=== PATIENT | male | born 1995 | race African-American/Black ===

== ENCOUNTER 2025-02-04 20:32 | Inpatient (IN) | payer OTHER, SELFPAY ==
--- NOTE | 2025-02-04 | ECG_ITS ---
Test Reason : TACHY Blood Pressure : */* mmHG Vent. Rate : 129 BPM Atrial Rate : 129 BPM P-R Int : 128 ms QRS Dur : 86 ms QT Int : 290 ms P-R-T Axes : 85 84 73 degrees QTcB Int : 424 ms Sinus tachycardia Biatrial enlargement Abnormal ECG No previous ECGs available Referred By: Generic ED Physician Electronically Signed By: MARIA DE JESUS CHAIDEZ
--- NOTE | ~2025-02-04 | CT_ITS ---
CLINICAL HISTORY: abdominal pain, renal failure CT abdomen and pelvis without contrast Comparison: None provided Findings: The lung bases are clear. Unremarkable gallbladder and solid organs. No urolithiasis. No bowel obstruction, pneumoperitoneum, or pneumatosis. Pelvic contents unremarkable. Normal appendix. No acute fracture. IMPRESSION: No acute findings. This document has been electronically signed by: Yoseph Azevedo MD on 02/05/2025 01:45:56
[2025-02-04 20:40] VITALS: BP 121/88; PULSE 155; PULSE 76; RESP 14; TEMP 36.6; O2SAT 100; O2SAT 98; BMI 19.0
[2025-02-04 21:53] LABS: MANUAL DIFF FLAG NO
[2025-02-04 21:55] LABS: Hemoglobin 19.8 g/dl (14.0-18.0); Imm Gran Abs Auto 0.14 X10*3/uL (0.00-0.03); Imm Gran Pct Auto 0.8 % (0.0-0.4); Lymphocytes Absolute Auto 2.1 X10*3/uL (1.2-4.9); Mean Corpuscular HGB Conc 34.4 g/dl (31.0-36.0); Mean Corpuscular Hemoglobin 32.8 pg (27.0-33.0); Mean Corpuscular Volume 95.2 fL (80.0-98.0); NRBC Abs Auto 0.000 X10*3/uL (0.0-0.012); NRBC Pct Auto 0.0 /100WBC (0.0-0.2); Platelet Count 223 X10*3/uL (160-400); Red Blood Count 6.04 X10*6/uL (4.60-5.80); White Blood Count 18.4 X10*3/uL (4.8-10.8)
[2025-02-04 22:08] LABS: Hematocrit 57.5 % (42.0-52.0)
[2025-02-04 22:14] LABS: Alanine Aminotransferase 32 U/L (0-40); Albumin Level 6.6 g/dL (3.5-5.0); Alkaline Phosphatase 88 U/L (39-117); Anion Gap 31 (12-20); Aspartate Amino Transferase 37 U/L (5-37); Blood Urea Nitrogen 46 mg/dL (9-16); Calcium 11.4 mg/dL (8.4-10.2); Carbon Dioxide 20 mmol/L (22-29); Chloride 92 mmol/L (96-108); Creatinine Clr Calc Pharmacy 14.5; Estimated Glomerular Filt Rate 10; Lipase 95 U/L (8-78); Potassium 5.4 mmol/L (3.3-5.1); Sodium 138 mmol/L (135-145); Total Protein 11.4 g/dL (6.5-8.0)
[2025-02-04 22:23] VITALS: BP 155/128; PULSE 128; RESP 20; TEMP 36.3; O2SAT 95
[2025-02-04 22:34] LABS: Resp Syncy Virus RNA Qual PCR NEGATIVE (Negative); SARS COV2 PCR INHOUSE NEGATIVE (Negative)
--- OUTSIDE RECORDS SUMMARY | 2025-02-04 22:43 | XMS_ITS ---
Author Name [facility] Organization Unknown Care Team Organization Name Specialty Phone Email Start Date End Da te [facility] Thierno Ness DO Primary Care 09/08/202202/01 [facility] Edna Husain Primary Care 05/11/2022 02/20/2024
--- OUTSIDE RECORDS SUMMARY | 2025-02-04 22:43 | XMS_ITS | Clinical Summary ---
Author Organization [facility] Address [address] [place] [address] Phone Care Team Providers Care Health Psychologist Name Role Phone Edna Armstrong Primary Care Provider + Allergies Active Allergy Reactions Criticality Noted Date Comments Prochlorperazine Restlessness,Sweating High 02/08/20 23 Droperidol 03/17/2022 Anxiety Other Medium 08/16/2017 Dust and Pollen Medications dicyclomine (BENTYL) 20 mg tablet Take 1 tablet (20 mg total) by mouth every 6 (six) hours as needed. 20 tablet 5 Active ondansetron (ZOFRAN-ODT) 4 MG disintegrating tablet Take 1 tablet (4 mg total) by mouth every 8 (eight) hours as needed. 10 tablet 5 Active Active Problems Problem Noted Date Diagnosed Date Acute kidney injury 2022 Assessment & Plan (2022 12:01 PM EDT): Patient's baseline creatinine of 1, noted to be elevated at 2.6 on admission with a BUN to creatinine ratio of about 15. Suspect this is prerenal DIMAS given significant nausea and vomiting prior to admission that has since resolved. DIMAS is improving slowly with IV fluids down to a creatinine of 2.2 this morning. Did have a mild anion gap, with mild hyperkalemia in the setting of mild hemolysis that has since resolved. - Continue IV fluids at 200/hr - avoid nephrotoxic medications. - Renally adjust medications - If worsening will obtain FeNA, renal US - Consider renal consult if no improvement Leukocytosis 2022 Assessment & Plan (2022 12:02 PM EDT): Has had brisk leukemoid reactions in the past. He is markedly dehydrated as illustrated by his serum protein of 10.0. I do not feel that his leukocytosis is artists' booking representative of an acute infection. If he develops a fever we will obtain cross-sectional imaging of his abdomen and pelvis. Leukocytosis is improving with fluid resuscitation, patient remains afebrile. Anxiety 2022 Assessment & Plan (2022 12:05 PM EDT): Patient reports increased anxiety, states that this is improved with either Benadryl or marijuana. He is requesting treatment while here in the hospital. -Trial of Atarax QID PRN - Encourage patient to follow-up with PCP for psychiatric counseling if interested Intractable nausea and vomiting 08/24/2022 Assessment & Plan (2022 11:57 AM EDT): Discussed the possibility of cannabis hyperemesis syndrome. Advised to stop smoking marijuana and if he is unable to do so he is advised to smoke low THC strains. 11/23: Patient reports resolution of nausea, vomiting, abdominal pain. HD stable, afebrile. He is tolerating full liquid diet. -Zofran BEVERLEY - PRN Compazine - Full liquid diet, advancing as tolerated - Continue Tylenol and oxycodone PRN - Continue Bentyl 20mg QID PRN for cramping - D/C IV morphine - Consider Amitryptyline for CVC prophylaxis with PCP on discharge Assessment & Plan (08/24/2022 5:19 AM EST): May be MJ hyperemesis or pt believes related to irritable bowel. He reports colonoscopy and endoscopy, which are confirmed with normal biopsy (one tubular adenoma) in February of 2022 at [place]. He is agreeable to trial of stopping MJ use and does have apt with mine wedge sawyer upcoming. For now D5LR to stop the ketosis and anticipate will be able to eat in the AM Social History Tobacco Use Types Packs/Day Years Used Date Smoking Tobacco: Never Smokeless Tobacco: Never Tobacco Cessation:Counseling Given: Not Answered Alcohol Use Standard Drinks/Week Comments Yes 0 (1 standard drink = 0.6 oz pur e alcohol) Education Answer Date Recorded Are you interested in more education? Not on gerda e 10/30/2022 Are you concerned about learning? Not on file 10/30/2022 No 10/30/2022 No 10/30/2022 Food Answer Date Recorded Within the past 6 months we worried whether our food would run out before we got money to buy more. Never True 10/22/2024 Within the past 6 months the food we bought just didn't last and we didn't have enough money to get more. Never True Residential Stability Answer Date Recor ded What is your housing situation today? I have blanquita sing 10/22/2024 How many times have you moved in the past 12 tue ths? One time 10/22/2024 Paying for Meds Answer Date Recorded Do you have trouble paying for medicines? No 10/22/2024 Paying Utility Bills Answer Date Record ed Do you have trouble paying your heating or elect ricity bill? No 10/22/2024 Transportation Answer Date Recorded Has the lack of transportati on kept you from medical appointments or from getting medications? No 10/22/2024 Digital Access Answer Date Recorded No 10/22/2024 Yes 10/22/2024 Do you have reliable internet access at home? Ye s 10/22/2024 Do you have a device (e.g., phone, tablet, computer) with a working camera? Yes 10/22/2024 Intimate Partner Violence Answer Date R ecorded Are you denied basic needs s uch as food, clothing, or medical care? No 10/22/2024 In the past 12 months have y ou been in a relationship with a person who hurts, threatens, or tries to control you? No 10/22/2024 Are you denied basic needs s uch as food, clothing, or medical care? No 10/22/2024 In the past 12 months have y ou been in a relationship with a person who hurts, threatens, or tries to control you? No 10/22/2024 Sex and Gender Information Value Date Recorded Sex Assigned at Male 04/15/2021 10:02 AM EDT Legal Sex Male 9:01 AM EDT Gender Identity Male 09/26/2021 3:37 PM EDT Sexual Orientation Straight 01/19/2024 12 :05 PM EDT Last Filed Vital Signs Vital Sign Reading Time Taken Comments Blood Pressure 136/92 10/22/2024 4:06 PM EDT Pulse 98 10/22/2024 4:06 PM EDT Temperature 36.7 C (98 F) 10/22/2024 4:06 PM EDT Respiratory Rate 16 10/22/2024 4:06 PM EDT Oxygen Saturation 98% 10/22/2024 4:06 PM EDT Inhaled Oxygen Concentration - - Weight 68 kg (150 lb) 08/11/2024 4:04 PM EST Height 185.4 cm (6' 1 ) 10/22/2024 12:12 PM EDT Body Mass Index 19.79 08/11/2024 4:04 PM EST Plan of Treatment Health Maintenance Due Date Last Done Comments Adult Td,Tdap Booster 1995 DEPRESSION SCREENING 2007 HEPATITIS C SCREENING 11/22/2013 HIV ONE-TIME SCREENING (18-6 5 YEARS) 11/22/2013 COVID-19 VACCINE (2023-2 5 season) 2024 06/23/2022, 06/18/2021, 10/26/2020 SMOKING STATUS SCREENING (On ce After 26 Yrs) Completed 10/22/2024 HEPATITIS A VACCINES Aged Out No long er eligible based on patient's age to complete this topic HIB VACCINES Aged Out No longer eligi ble based on patient's age to complete this topic MENINGOCOCCAL VACCINES (ACWY) Aged Out No longer eligible based on patient's age to complete this topic MENINGOCOCCAL VACCINES (B) Aged Out N o longer eligible based on patient's age to complete this topic PNEUMOCOCCAL VACCINES (0-49 years) Aged Out No longer eligible b ased on patient's age to complete this topic Medical Devices Not on file Insurance [facility] A[facility] [employer] ALLANCE [employer]CO [employer] ALL[employer] [facility] [employer] [place] [address] [place] [address] [place] [address] [place] [address] [employer] [place] [facility] [employer] ALLANCE [employer]ANCE ACO Advance Directives For more information, please contact: [phone] (9AM - 5PM [facility], Tuesday-Tuesday) Documents on File Type Date Recorded 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 08/26/2022 2:08 PM * Full Code (Latest Code Status on File) Date Activated Date Inactivated Comments 2022 2:52 AM Question Answer Comments Code Status Confirmed With: Patient * Full Code Date Activated Date Inactivated Comments 08/24/2022 5:34 AM 2022 2:52 AM Question Answer Comments Code Status Confirmed With: Patient Care Teams Health Psychologist Relationship Specialty Start Date End Date Edna Armstrong PA [address] [place] [phone] PCP - General 09/26/21 Additional Source Comments The information contained in this document represents components of the legal health record. It is not the complete legal health record.[facility]
--- OUTSIDE RECORDS SUMMARY | 2025-02-04 22:43 | XMS_ITS | Clinical Summary ---
Author Organization [facility] [address] [facility] [facility] [address] Address [address] [place] [address] Phone Care Team Providers Care Supervisor Lump Room Name Role Phone Geovanna Hinds MD Primary Care Provider Allergies Active Allergy Reactions Criticality Noted Date Comments Droperidol Anxiety 03/17/2022 Anxiety Other Medium 08/16/2017 Dust and Pollen Prochlorperazine Anxiety,Sweating High 02/07/2023 Medications dicyclomine (BENTYL) 20 mg tablet Take 1 Tablet by mouth every 6 hours as needed (Abdominal cramping). 4 Active peppermint oiL 90 mg capsule,delayed,ext end.release Take 1 capsule by mouth 1 (one) time each day. Active ondansetron ODT (ZOFRAN-ODT) 4 mg disintegrating tablet Dissolve 1 tablet (4 mg total) on top of the tongue every 8 (eight) hours if needed for nausea or vomiting. 20 tablet 1 5 Active amitriptyline (ELAVIL) 10 mg tablet Take 1 tablet (10 mg total) by mouth at bedtime. 30 each 3 5 10/05/19 26 Active magnesium oxide 400 mg magnesium capsule Take 1 capsule by mouth at bedtime. 30 capsule 3 5 Active Active Problems Problem Noted Date Diagnosed Date Tubular adenoma of colon 04/21/2022 Cannabis abuse 04/27/2019 IBS (irritable bowel syndrome) 03/21/2018 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 LLQ abdominal pain 07/05/2017 Nausea and vomiting 07/05/2017 Encounters Date Type Department Care Team Description 01/08/2025 2:00 PM EDT Office Visit Gastroenterology - [facility] [address] [place] [address] Kori Nash PA Irritable bowel syndrome with both constipation and diarrhea (Primary Dx); Tubular adenoma of colon; Nausea and vomiting, unspecified vomiting type from Last 3 Months Immunizations Name Administration Dates Next Due Influenza Quadravalent, MDCK , 0.5ml, with preservative (Flucelvax) 6mo and older 07/05/2017 Influenza trivalent, MDCK, 0 .5mL, preservative free (Flucelvax) 6mo and older 06/19/2024 Influenza, Unspecified 06/23/2022 Moderna SARS-CoV-2 COVID-19, mRNA, LNP-S, preservative free 06/23/2022 Surgical History Surgery Date Site/Laterality Comments OTHER SURGICAL HISTORY PROCEDURE: DENIES PREVIOUS SURGERY Medical History Medical History Date Comments Constipation 07/05/2017 DX:Constipation LLQ abdominal pain 07/05/2017 DX:LLQ abdomi nal pain IBS (irritable bowel syndrome) 03/21/2018 D X:IBS (irritable bowel syndrome) 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 DX:Nephrocalcin osis Cannabis abuse 04/27/2019 DX:Cannabis abus e Anxiety Family History Medical History Relation Name Comments Hypertension Father Hypertension Mother Relation Name Status Comments Father Mother Social History Tobacco Use Types Packs/Day Years Used Date Smoking Tobacco: Every Day Cigarettes 0.2 8.3 Started: 10/12/2016 Smokeless Tobacco: Former Alcohol Use Standard Drinks/Week Comments Yes 0 (1 standard drink = 0.6 oz pur e alcohol) Interpersonal Safety Answer Date Record ed Physical Abuse 10/10/2024 Verbal Abuse 10/10/2024 Sex and Gender Information Value Date Recorded Sex Assigned at Male 10/10/2024 7:20 AM EDT Legal Sex Male 8:22 PM EST Gender Identity Male 10/10/2024 7:20 AM EDT Sexual Orientation Straight 10/10/2024 7: 20 AM EDT Obstetrics History Last Filed Vital Signs Vital Sign Reading Time Taken Comments Blood Pressure 118/76 01/08/2025 2:10 PM EDT Pulse 102 01/08/2025 2:10 PM EDT Temperature 37.1 C (98.7 F) 10/10/2024 8:02 AM EDT Respiratory Rate 18 10/10/2024 8:46 AM EDT Oxygen Saturation 98% 01/08/2025 2:10 PM EDT Inhaled Oxygen Concentration - - Weight 63.9 kg (140 lb 12.8 oz) 01/08/2025 2:10 PM EDT Height 185.4 cm (6' 1 ) 01/08/2025 2:10 PM EDT Body Mass Index 18.58 01/08/2025 2:10 PM EDT Plan of Treatment Upcoming Encounters Date Type Department Care Team (Late st Contact Info) Description 04/10/2025 8:30 AM EDT Office Visit Gastroenterology - [facility] [address] [facility] [address] [place] [id number] Kori Nash PA [address] [facility] [address] [place] [address] Health Maintenance Due Date Last Done Comments DTaP,Tdap,and Td Vaccines (1 - Tdap) 11/22/2014 Hepatitis A Vaccines (1 of 2 - Risk 2-dose series) 11/22/2014 Hepatitis B Vaccines (1 of 3 - 19+ 3-dose series) 11/22/2014 Pneumococcal Vaccine: Pediatrics (0 to 5 Years) and At-Risk Patients (6 to 49 Years) (1 of 2 - PCV) 11/22/2014 HIV Screening 06/05/2022 Hepatitis C Screening 06/05/2022 Social Influencers of Health Screening 06/05/2022 COVID-19 Vaccine (4 - 2023-2 5 season) 2024 06/23/2022, 06/18/2021, 10/26/2020 Depression Screening 07/04/2024 01/11/2024 Influenza Vaccine (#1) 2025 , 06/23/2022, 07/05/2017 Cholesterol Screening (Lipid Panel) 01/10/2029 01/11/2024, 01/11/2024 Colorectal Cancer Screening: Colonoscopy 10/10/2029 10/10/2024 HIB Vaccines Aged Out No longer eligi ble based on patient's age to complete this topic HPV Vaccines Aged Out No longer eligi ble based on patient's age to complete this topic IPV Vaccines Aged Out No longer eligi ble based on patient's age to complete this topic MMR Vaccines Aged Out No longer eligi ble based on patient's age to complete this topic Meningococcal ACWY Vaccine Aged Out N o longer eligible based on patient's age to complete this topic Meningococcal B Vaccine Aged Out No l onger eligible based on patient's age to complete this topic RSV Immunization Patients Under 20 months Aged Out No longer eligible b ased on patient's age to complete this topic Varicella Vaccines Aged Out No longer eligible based on patient's age to complete this topic Procedures Procedure Name Priority Date/Time Associated Diagnosis Comments COLONOSCOPY Routine 10/10/2024 8:25 AM EDT Irritable bowel syndrome with both constipation and diarrhea Tubular adenoma of colon Hx of colonic polyps HM DEPRESSION SCREENING Routine 01/11/2024 LIPID PANEL Routine 01/11/2024 from Last 3 Months or Most Recently Relevant to Health Maintenance Results * COLONOSCOPY Anesthesia - MAC; [facility] ENDOSCOPY (10/10/2024 8:25 AM EDT) Anatomical Region Laterality Modality Endoscopy 10/10/2024 8:16 AM EDT Impressions 10/10/2024 8:26 AM EDT - One 4 mm polyp in the ascending colon, removed with a cold snare. Resected and retrieved. - Internal hemorrhoids. - The examination was otherwise normal. Recommendation: - Discharge patient to home. - Await pathology results. - Repeat colonoscopy in 5 years for surveillance. Narrative 10/10/2024 8:26 AM EDT [facility] GI Patient Name: Gabriel Sutherland Procedure Date: 10/10/2024 8:16 AM Date of : 1995 Age: 28 Gender: Male Note Status: Finalized Attending MD: Santino Mills MD, Procedure Date No Time: 10/10/2024 Procedure: Colonoscopy Indications: Hematochezia Providers: Santino Mills MD Referring MD: Santino Mills MD Medicines: Monitored Anesthesia Care Complications: No immediate complications. Estimated blood loss: Minimal. Estimated Blood Loss: Estimated blood loss was minimal. Procedure: Pre-Anesthesia Assessment: - Prior to the procedure, a History and Physical was performed, and patient medications and allergies were reviewed. The patient is competent. The risks and benefits of the procedure and the sedation options and risks were discussed with the patient. All questions were answered and informed consent was obtained. Patient identification and proposed procedure were verified by the physician, the nurse, the talent acquisition administrator and the geotechnician in the pre-procedure area in the procedure room. Mental Status Examination: alert and oriented. Airway Examination: normal oropharyngeal airway and neck mobility. Respiratory Examination: clear to auscultation. CV Examination: normal. Prophylactic Antibiotics: The patient does not require prophylactic antibiotics. Prior Anticoagulants: The patient has taken no anticoagulant or antiplatelet agents. ASA Grade Assessment: III - A patient with severe systemic disease. After reviewing the risks and benefits, the patient was deemed in satisfactory condition to undergo the procedure. The anesthesia plan was to use monitored anesthesia care (MAC). Immediately prior to administration of medications, the patient was re-assessed for adequacy to receive sedatives. The heart rate, respiratory rate, oxygen saturations, blood pressure, adequacy of pulmonary ventilation, and response to care were monitored throughout the procedure. The physical status of the patient was re-assessed after the procedure. After I obtained informed consent, the scope was passed under direct vision. Throughout the procedure, the patient's blood pressure, pulse, and oxygen saturations were monitored continuously. The Olympus Colonoscope was introduced through the anus and advanced to the cecum, identified by appendiceal orifice and ileocecal valve. The colonoscopy was performed without difficulty. The patient tolerated the procedure well. The quality of the bowel preparation was good. Findings: The perianal and digital rectal examinations were normal. A 4 mm polyp was found in the ascending colon. The polyp was sessile. The polyp was removed with a cold snare. Resection and retrieval were complete. Estimated blood loss was minimal. Internal hemorrhoids were found during retroflexion. The hemorrhoids were Grade I (internal hemorrhoids that do not prolapse) and Grade II (internal hemorrhoids that prolapse but reduce spontaneously). The exam was otherwise without abnormality. Procedure Code(s): --- Professional --- 39492, Colonoscopy, flexible; with removal of tumor(s), polyp(s), or other lesion(s) by snare technique Diagnosis Code(s): --- Professional --- D12.2, Benign neoplasm of ascending colon CPT copyright 2020 [employer]. All rights reserved. The codes documented in this report are preliminary and upon scenario writer review may be revised to meet current compliance requirements. Santino Mills MD 10/10/2024 8:26:18 AM This report has been signed electronically.Santino Mills MD Number of Addenda: 0 Note Initiated On: 10/10/2024 8:16 AM Scope Withdrawal Time: 0 hours 6 minutes 38 seconds Scope In: 8:16:46 AM Scope Out: 8:25:43 AM Endoscopy Department at [address] [phone] Procedure Note Santino Mills MD - 10/10/2024 [facility] GI Patient Name: Gabriel Sutherland Procedure Date: 10/10/2024 8:16 AM Date of : 1995 Age: 28 Gender: Male Note Status: Finalized Attending MD: Santino Mills MD, Procedure Date No Time: 10/10/2024 Procedure: Colonoscopy Indications: Hematochezia Providers: Santino Mills MD Referring MD: Santino Mills MD Medicines: Monitored Anesthesia Care Complications: No immediate complications. Estimated blood loss: Minimal. Estimated Blood Loss: Estimated blood loss was minimal. Procedure: Pre-Anesthesia Assessment: - Prior to the procedure, a History and Physicalwas performed, and patient medications and allergieswere reviewed. The patient is competent. The risks and benefits of the procedure and the sedation optionsand risks were discussed with the patient. Allquestions were answered and informed consent was obtained. Patient identification and proposed procedure were verified by the physician, the nurse, theanesthetist and the geotechnician in the pre-procedure area in the procedure room. Mental Status Examination: alertand oriented. Airway Examination: normal oropharyngeal airway and neck mobility. Respiratory Examination: clear to auscultation. CV Examination: normal. Prophylactic Antibiotics: The patient does notrequire prophylactic antibiotics. Prior Anticoagulants: The patient has taken no anticoagulant or antiplatelet agents. ASA Grade Assessment: III - A patient with severe systemic disease. After reviewing the risksand benefits, the patient was deemed in satisfactory condition to undergo the procedure. The anesthesia plan was to use monitored anesthesia care (MAC). Immediately prior to administration of medications, the patient was re-assessed for adequacy to receive sedatives. The heart rate, respiratory rate, oxygen saturations, blood pressure, adequacy of pulmonary ventilation, and response to care were monitored throughout the procedure. The physical status ofthe patient was re-assessed after the procedure. After I obtained informed consent, the scope was passed under direct vision. Throughout theprocedure, the patient's blood pressure, pulse, and oxygen saturations were monitored continuously. TheOlympus Colonoscope was introduced through the anus and advanced to the cecum, identified by appendiceal orifice and ileocecal valve. The colonoscopy was performed without difficulty. The patient tolerated the procedure well. The quality of the bowel preparation was good. Findings: The perianal and digital rectal examinations were normal. A 4 mm polyp was found in the ascending colon. The polyp was sessile. The polyp was removed with acold snare. Resection and retrieval were complete. Estimated blood loss was minimal. Internal hemorrhoids were found duringretroflexion. The hemorrhoids were Grade I (internal hemorrhoids that do not prolapse) and Grade II (internal hemorrhoids that prolapse but reducespontaneously). The exam was otherwise without abnormality. Procedure Code(s): --- Professional --- 23210, Colonoscopy, flexible; with removal of tumor(s), polyp(s), or other lesion(s) by snare technique Diagnosis Code(s): --- Professional --- D12.2, Benign neoplasm of ascending colon CPT copyright 2020 [employer]. All rights reserved. The codes documented in this report are preliminary and upon scenario writer reviewmay be revised to meet current compliance requirements. Santino Mills MD 10/10/2024 8:26:18 AM This report has been signed electronically.Santino Mills MD Number of Addenda: 0 Note Initiated On: 10/10/2024 8:16 AM Scope Withdrawal Time: 0 hours 6 minutes 38 seconds Scope In: 8:16:46 AM Scope Out: 8:25:43 AM Endoscopy Department at [facility] - [address] [place] [phone] IMPRESSION: - One 4 mm polyp in the ascending colon, removed with a cold snare. Resected and retrieved. - Internal hemorrhoids. - The examination was otherwise normal. Recommendation: - Discharge patient to home. - Await pathology results. - Repeat colonoscopy in 5 years for surveillance. Santino Mills MD GI~PROCEDURE ORDERABLES Fin al Result * Depression Screening (01/11/2024) Depression Screening abstracted Historical Provider HEALTH MAINTENANCE Final Result * Lipid panel (01/11/2024) LDL/HDL Ratio 2 0 - 4 Triglycerides 42 0 - 150 mg/dL Cholesterol 133 0 - 200 mg/dL HDL 70 >=40 mg/dL LDL Cholesterol 55 0 - 100 mg/dL Blood Venous blood specimen / Unknown Historical Provider LAB BLOOD ORDERABLES Tess l Result from Last 3 Months or Most Recently Relevant to Health Maintenance Insurance [facility] [place] [address] Care Teams Supervisor Lump Room Relationship Specialty Start Date End Date Geovanna Hinds MD [address] [place] [id number] PCP - General Internal Medicine 11/18/21
--- OUTSIDE RECORDS SUMMARY | 2025-02-04 22:43 | XMS_ITS | Referral Summary ---
Author Organization [facility] Address [address] [place] [id number] Care Team Providers Care Block Layer Name Role Phone Patient, Has No Pcp Or Ref Primary Care Provider Unavailable Allergies No known active allergies Medications dicyclomine (BENTYL) 20 mg tablet Take 1 tablet (20 mg total) by mouth 2 times a day. 20 tablet 10/21/2022 Active Social History Tobacco Use Types Packs/Day Years Used Date Smoking Tobacco: Never Smokeless Tobacco: Never Tobacco Cessation:Counseling Given: Not Answered Alcohol Use Standard Drinks/Week Comments Never 0 (1 standard drink = 0.6 oz pur e alcohol) Sex and Gender Information Value Date Recorded Sex Assigned at Not on file Legal Sex Male 12:16 PM EDT Gender Identity Not on file Sexual Orientation Not on file Last Filed Vital Signs Vital Sign Reading Time Taken Comments Blood Pressure 161/77 10/21/2022 5:40 PM EDT Pulse 81 10/21/2022 5:40 PM EDT Temperature 36.7 C (98 F) 10/21/2022 12:22 PM EDT Respiratory Rate 19 10/21/2022 5:40 PM EDT Oxygen Saturation 99% 10/21/2022 5:40 PM EDT Inhaled Oxygen Concentration - - Weight 68 kg (150 lb) 10/21/2022 12:22 PM EDT Height - - Body Mass Index - - Plan of Treatment Not on file Insurance [employer] Care Teams Block Layer Relationship Specialty Start Date End Date Patient, Has No Pcp Or Ref DO NOT EDIT THIS RECORD VIA PROVIDER ON THE FLY 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
[2025-02-04 22:59] VITALS: BP 141/97; PULSE 109; RESP 17; O2SAT 95
[2025-02-04 23:03] VITALS: RESP 16
[2025-02-04 23:40] LABS: Magnesium 2.5 mg/dL (1.6-2.6)
[2025-02-04 23:51] VITALS: BP 133/93; PULSE 99; RESP 16; O2SAT 98
[2025-02-05] VITALS (11 sets, daily range): BP systolic 129–153; BP diastolic 80–104; PULSE 80–111; RESP 11–18; TEMP 36.6–37.2; O2SAT 94–99; BMI 19.0; BMI 18.1
[2025-02-05 01:23] LABS: Reflex Lactate? Lactic Acid Added
[2025-02-05 01:25] LABS: Appearance Urine Cloudy; Glucose Urine UA Negative (Negative); PH 5.5 (5.0-9.0); Specific Gravity - Urine 1.020 (1.005-1.025); UMIC TRIGGER UACC YES
[2025-02-05 01:51] LABS: ~Lactic Acid-LAB USE ONLY 1.7 mmol/L (0.5-2.0)
--- NOTE | 2025-02-05 03:12 | ED.ABDPAIN ---
HPI - Abdominal Pain General Chief Complaint: Abdominal Pain Stated Complaint: ibs flare up Time Seen by Provider: 02/04/25 22:33 Source: patient and family Mode of arrival: ambulatory Limitations: no limitations History of Present Illness ED Provider: Dr. Dede Verdugo HPI narrative: 29-year-old male with a history of IBS presenting with generalized abdominal pain radiating to his back, severe nausea and vomiting ongoing for the last 48 hours or so. Patient admits to symptoms started at work on Tuesday night and he had to leave early. Has a history of this and has been hospitalized for it in the past. Describes leg cramping and muscle spasms as well. Has been taking his Zofran and dicyclomine without relief. Also uses amitriptyline for his IBS but admits that has not helped much and he really has not been able to hold it down. Denies associated fever, bowel changes. No diarrhea. No hematochezia or melena. Last bowel movement was 2 days ago. Denies hematemesis. No urinary complaints or testicular pain. Had been feeling well prior to this. Last hospitalization was several months ago. He gets most of his care at [facility]. Related Data Allergies Allergy/AdvReac Type Severity Reaction Status Date / Time droperidol Allergy Anxiety Verified 02/04/25 21:20 Review of Systems Review of Systems as per HPI, full review of systems performed and negative but for the above mentioned pertinent positives and negatives. [facility] Past Medical History Attestation statement: The following information was validated with the patient. [facility] Narrative: IBS, denies alcohol, tobacco or illicit substance use Social History Social History Smoked in Last 30 Days: Yes Use of substances other than those prescribed or required for medical reasons: Yes Substance Use Type: Marijuana Advance Directives: No Advance Directives Information Provided: No Do you have a plan to hurt others: No Plan Physical Exam ED Exam Exam: GENERAL: Ill-Appearing, appears uncomfortable. SKIN: Normal skin color for ethnicity, warm, dry, no rashes noted. HEENT: Normocephalic, atraumatic, no stridor, dry mucous membranes, dentition intact, EOMI, PERRLA. NECK: Soft, supple, full ROM, midline structures nontender, no step-offs, no deformities, no lymphadenopathy. CHEST: Heart regular tachycardia, no murmurs, symmetric chest rise and fall. PULMONARY: Clear to auscultation bilaterally, diminished at the bases, no labored breathing, no wheezes/rhales/rhonchi. ABDOMINAL: Soft, nondistended, diffusely tender to palpation with voluntary guarding, positive bowel sounds in all quadrants. : Deferred. MUSCULOSKELETAL: Normal tone, full range of motion, no deformities, no peripheral edema. NEURO: Alert and oriented x3, CN II through XII intact, equal strength and sensation bilateral upper and lower extremities, no focal neurologic deficits. PSYCHIATRIC: Flat affect, fluid speech, good eye contact and appropriate demeanor. Vital Signs: Vital Signs - 24 hr 02/04/25 20:40 02/04/25 22:23 02/04/25 22:59 Temperature 97.9 F 97.4 F Pulse Rate 155 H 128 H 109 H Respiratory Rate 14 20 17 Blood Pressure 121/88 155/128 H 141/97 H Pulse Oximetry 98 95 95 Oxygen Delivery Method Room Air Room Air Room Air 02/04/25 23:03 02/04/25 23:51 02/05/25 00:25 Temperature Pulse Rate 99 102 H Respiratory Rate 16 16 12 Blood Pressure 133/93 H 133/88 Pulse Oximetry 98 97 Oxygen Delivery Method Room Air Room Air 02/05/25 00:31 02/05/25 00:45 02/05/25 01:03 Temperature Pulse Rate 101 H 99 104 H Respiratory Rate 12 Blood Pressure 138/104 H 136/103 H 135/95 H Pulse Oximetry 98 Oxygen Delivery Method Room Air BMI result Body Mass Index 19.0 Medical Decision Making Medical Decision Making MDM Narrative: This patient presents today with a chief complaint of abdominal pain. Differential diagnosis for this patient is broad. It includes appendicitis, cholecystitis, bowel obstruction, peptic ulcer disease, pyelonephritis, vascular pathology, among many others. A broad-based workup based on history and physical examination was obtained. 22:36 PM 02/04/2025 (Dr. Dede Verdugo, D.O.) patient flagging for SIRS with elevated white blood cell count, tachycardia. Added on lactic acid and blood cultures, 30 cc/kg fluid bolus initiated. Patient is in renal failure with creatinine of 6.74. I have no previous for comparison. Patient denies medical history aside from IBS but reports that he has had ?issues with his kidneys before and has required IV fluid resuscitation?. Potassium is elevated as well with some peaked T-waves on his EKG. We will give insulin and glucose. Avoiding calcium gluconate given his calcium level of 11.4. With aggressive fluid resuscitation, his potassium will drop any way. He is not significantly acidotic, carbon dioxide level is 20. Anion gap is 31 and I suspect this is due to uremia in the setting of acute renal failure. Suspect elevated white blood cell count in the setting of severe dehydration. His red blood cells are also elevated. 3:27 AM 02/05/2025 (Dr. Dede Verdugo, D.O.) patient's lactic acid level has dropped down to 1.7. Heart rate is improving as well. He remains afebrile, resting comfortably after treatment for nausea and vomiting. CT abdomen and pelvis shows no acute process. He has some red blood cells in his urine but no evidence of infection. I believe that his elevated lactic acid level, heart rate and kidney dysfunction are secondary to profound dehydration in the setting of nausea and vomiting over the last several days. He has been unable to keep anything down. Slight elevation in his CPK, consistent with mild rhabdomyolysis. Given his level of renal impairment, plan for admission to hospitalist for further care and evaluation. Differential Diagnosis Differential Diagnoses: The differential diagnosis associated with the presentation includes (As above) Admission/Observation Consideration of admission/observation: Escalation of care including admission/observation considered Consult Healthcare Provider Management of the patient was discussed with: Hospitalist Lab Data MDM Lab Attestation statement: I reviewed the patient's lab results. 02/04/25 21:48 02/04/25 21:48 Labs: Lab Results 02/04/25 02/04/25 02/05/25 Range/Units 21:48 23:16 01:16 WBC 18.4 H (4.8-10.8) X10*3/uL RBC 6.04 H (4.60-5.80) X10*6/uL Hgb 19.8 H (14.0-18.0) g/dl Hct 57.5 H (42.0-52.0) % MCV 95.2 (80.0-98.0) fL MCH 32.8 (27.0-33.0) pg MCHC 34.4 (31.0-36.0) g/dl RDW 12.5 (11.0-16.0) % Plt Count 223 (160-400) X10*3/uL MPV 11.2 (9.4-12.4) fL Immature Gran % (Auto) 0.8 H (0.0-0.4) % Neut % (Auto) 81.0 H (45-73) % Lymph % (Auto) 11.7 L (20-40) % [place] % (Auto) 6.3 (2-11) % Eos % (Auto) 0.0 (0-4) % Baso % (Auto) 0.2 (0-2) % Lymph # (Auto) 2.1 (1.2-4.9) X10*3/uL [place] # (Auto) 1.2 (0.1-1.2) X10*3/uL Eos # (Auto) 0.0 (0.0-0.4) X10*3/uL Baso # (Auto) 0.0 (0.0-0.2) X10*3/uL Abs Immat Gran (auto) 0.14 H (0.00-0.03) X10*3/uL Absolute Neuts (auto) 14.9 H (2.0-8.3) x10*3/uL Absolute Nucleated RBC 0.000 (0.0-0.012) X10*3/uL Nucleated RBC % (auto) 0.0 (0.0-0.2) /100WBC Sodium 138 (135-145) mmol/L Potassium 5.4 H (3.3-5.1) mmol/L Chloride 92 L (96-108) mmol/L Carbon Dioxide 20 L (22-29) mmol/L Anion Gap 31 H (12-20) BUN 46 H (9-16) mg/dL Creatinine 6.74 H* (0.5-1.4) mg/dL Estim Creat Clear Calc 14.5 Estimated GFR 10 Random Glucose 171 H (60-115) mg/dL Lactic Acid 4.2 H* (0.5-2.0) mmol/L Lactic Acid F/U @ 2Hr (0.5-2.0) mmol/L Calcium 11.4 H (8.4-10.2) mg/dL Magnesium 2.5 (1.6-2.6) mg/dL Total Bilirubin 0.8 (0.0-1.0) mg/dL AST 37 (5-37) U/L ALT 32 (0-40) U/L Alkaline Phosphatase 88 (39-117) U/L Total Creatine Kinase 718 H (38-174) U/L Total Protein 11.4 H (6.5-8.0) g/dL Albumin 6.6 H (3.5-5.0) g/dL Lipase 95 H (8-78) U/L Beta-Hydroxybutyrate 0.16 (0.02-0.27) mmol/L Urine Color Dark Yellow Urine Appearance Cloudy Urine pH 5.5 (5.0-9.0) Ur Specific [place] 1.020 (1.005-1.025) Urine Protein 300 (3+) H (Neg-Trace) mg/dL Urine Glucose (UA) Negative (Negative) mg/dL Urine Ketones Trace (Negative) mg/dL Urine Blood Large (3+) H (Negative) Urine Nitrite Negative (Negative) Ur Leukocyte Esterase Trace H (Negative) Urine RBC 3-5 H (0-2) /HPF Urine WBC 0-5 (0-5) /HPF Ur Squamous Epith Cells 11-20 (0-2) /HPF Urine Bacteria 1+ (None Seen) Hyaline Casts 6-10 (0-2) /LPF Granular Casts Present Influenza Type A (PCR) NEGATIVE (Negative) Influenza Type B (PCR) NEGATIVE (Negative) RSV RNA Qual (PCR) NEGATIVE (Negative) SARS-CoV-2 RNA (RT-PCR) NEGATIVE (Negative) 02/05/25 Range/Units 01:31 WBC (4.8-10.8) X10*3/uL RBC (4.60-5.80) X10*6/uL Hgb (14.0-18.0) g/dl Hct (42.0-52.0) % MCV (80.0-98.0) fL MCH (27.0-33.0) pg MCHC (31.0-36.0) g/dl RDW (11.0-16.0) % Plt Count (160-400) X10*3/uL MPV (9.4-12.4) fL Immature Gran % (Auto) (0.0-0.4) % Neut % (Auto) (45-73) % Lymph % (Auto) (20-40) % [place] % (Auto) (2-11) % Eos % (Auto) (0-4) % Baso % (Auto) (0-2) % Lymph # (Auto) (1.2-4.9) X10*3/uL [place] # (Auto) (0.1-1.2) X10*3/uL Eos # (Auto) (0.0-0.4) X10*3/uL Baso # (Auto) (0.0-0.2) X10*3/uL Abs Immat Gran (auto) (0.00-0.03) X10*3/uL Absolute Neuts (auto) (2.0-8.3) x10*3/uL Absolute Nucleated RBC (0.0-0.012) X10*3/uL Nucleated RBC % (auto) (0.0-0.2) /100WBC Sodium (135-145) mmol/L Potassium (3.3-5.1) mmol/L Chloride (96-108) mmol/L Carbon Dioxide (22-29) mmol/L Anion Gap (12-20) BUN (9-16) mg/dL Creatinine (0.5-1.4) mg/dL Estim Creat Clear Calc Estimated GFR Random Glucose (60-115) mg/dL Lactic Acid (0.5-2.0) mmol/L Lactic Acid F/U @ 2Hr 1.7 (0.5-2.0) mmol/L Calcium (8.4-10.2) mg/dL Magnesium (1.6-2.6) mg/dL Total Bilirubin (0.0-1.0) mg/dL AST (5-37) U/L ALT (0-40) U/L Alkaline Phosphatase (39-117) U/L Total Creatine Kinase (38-174) U/L Total Protein (6.5-8.0) g/dL Albumin (3.5-5.0) g/dL Lipase (8-78) U/L Beta-Hydroxybutyrate (0.02-0.27) mmol/L Urine Color Urine Appearance Urine pH (5.0-9.0) Ur Specific [place] (1.005-1.025) Urine Protein (Neg-Trace) mg/dL Urine Glucose (UA) (Negative) mg/dL Urine Ketones (Negative) mg/dL Urine Blood (Negative) Urine Nitrite (Negative) Ur Leukocyte Esterase (Negative) Urine RBC (0-2) /HPF Urine WBC (0-5) /HPF Ur Squamous Epith Cells (0-2) /HPF Urine Bacteria (None Seen) Hyaline Casts (0-2) /LPF Granular Casts Influenza Type A (PCR) (Negative) Influenza Type B (PCR) (Negative) RSV RNA Qual (PCR) (Negative) SARS-CoV-2 RNA (RT-PCR) (Negative) Radiology Impression Discussion of test interpretation with radiology: I have reviewed the radiologist's reading. Radiologist Impression: CT abdomen and pelvis without contrast Comparison: None provided Findings: The lung bases are clear. Unremarkable gallbladder and solid organs. No urolithiasis. No bowel obstruction, pneumoperitoneum, or pneumatosis. Pelvic contents unremarkable. Normal appendix. No acute fracture. IMPRESSION: No acute findings. This document has been electronically signed by: Yoseph Azevedo MD on 02/05/2025 01:45:56 Chronic Conditions Patient?s care impacted by: Other (IBS) Medications Administered Discontinued Medications Generic Name Dose Route Start Last Admin Trade Name Freq PRN Reason Stop Dose Admin Dextrose 25 gm 02/04/25 22:52 02/04/25 23:03 Dextrose 50 % 25 Gm/50 Ml Syringe IVPUSH 02/04/25 22:53 25 gm ONCE ONE Administration Hydromorphone HCl 1 mg 02/04/25 22:52 02/04/25 23:03 Hydromorphone Hcl 1 Mg/Ml Syringe IVPUSH 02/04/25 22:53 1 mg ONCE ONE Administration Protocol Lactated Ringer's 1,905.09 mls @ 1,905.09 mls/hr 02/04/25 22:34 02/05/25 00:25 Lr 30 ml/kg infuse over 1 hr (1905.09 ml) 02/04/25 23:33 Infused IV Infusion .Q1H ONE Piperacillin Sod/Tazobactam 100 mls @ 200 mls/hr 02/05/25 00:02 02/05/25 01:03 Sod 4.5 gm/ Sodium Chloride IV 02/05/25 00:31 Infused ONCE ONE Infusion Insulin Human Regular 10 unit 02/04/25 22:42 02/04/25 23:03 Insulin Regular, Human 100 Unit/Ml 10 Ml Vial IVPUSH 02/04/25 22:43 10 unit ONCE ONE Administration Ondansetron HCl 4 mg 02/04/25 22:52 02/04/25 23:04 Ondansetron Hcl 4 Mg/2 Ml Vial IVPUSH 02/04/25 22:53 4 mg ONCE ONE Administration Critical Care Time Critical Care Time Total Critical Care Time: 45 Attestation: CRITICAL CARE TIME: 45 minutes of critical care time was spent in direct patient care at the bedside or in the immediate area with this patient. Critical care was necessary to treat or prevent imminent or life-threatening deterioration of the following conditions renal failure, rhabdomyolysis, lactic acidosis, hyperkalemia and hypercalcemia due to nausea and vomiting, severe dehydration. This patient is high risk for decompensation and/or . This time was spent assessing and managing the patient, interpreting labs and imaging, coordinating care with other medical providers, gathering history from either the patient, their representatives, EMS or chart review, and discussing management with hospitalist. Discharge Plan Discharge Clinical Impression: Acute renal failure, Acute abdominal pain, Intractable nausea and vomiting, Acute dehydration, Hyperkalemia, Hypercalcemia, Rhabdomyolysis Patient Disposition: Admitted As Inpatient Print Language: [place]
--- NOTE | 2025-02-05 03:52 | PM.IMHP ---
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 Patient does report history of IBS but also states that his alcohol use has increased due to daily stressors of life including bills and family responsibilities. Patient denies history of withdrawal from alcohol or seizures related to withdrawal. Patient also smoking excessive amounts of marijuana and does recognize the cycle of hot showers to relieve symptoms associated with leg cramping and nausea and vomiting. Patient was started IV fluids in the emergency department noting evidence of DIMAS with a GFR of 10 and a creatinine clearance of 14.5.. Patient is producing adequate amounts of urine, UA negative for UTI but with noted proteinuria. Patient does have mild hyperkalemia with hypercalcemia. Patient did receive dextrose and regular insulin x1 in the emergency department. Repeat labs are currently pending. Patient also has a CK level of 718 indicating mild rhabdomyolysis. Patient was reporting some cramping in the lower legs prior to being seen in the ED. Patient's lactic acid initially 4.2 and is now 1.7 after IV fluids. Lipase is mildly elevated at 95. BP has been persistently elevated. Pt denies hx of MEAGAN or being on medication for HTN in the past. Patient does have a leukocytosis but no obvious evidence of infection. Patient did receive 1 dose of Zosyn emergency department. Patient currently symptom-free and is not experiencing any chest pain, shortness of breath, nausea or vomiting. Patient is tolerating ice chips. Patient denies any abdominal pain. CT of the abdomen and pelvis is negative for any acute findings.Viral studies negative. Pt is not hypoxic. Patient states he has been dealing with increased depression anxiety but is not currently suicidal. Patient does have history of inpatient admission for suicidal attempt back in 2019. Patient states he did not have the supportive family and was living away from family at the time. Patient is interested in speaking with Psychiatry and addictions noting his increased use of alcohol recently and chronic marijuana use for coping. At this time patient does not require one-to-one or section 12. Review of Systems Review of Systems: Patient denies any current nausea or vomiting or abdominal pain. Patient does suffer from intermittent dark constipation with diarrhea secondary to his IBS. Patient does offer that he takes a hot shower was often during the symptoms of nausea vomiting and will use marijuana to relieve these symptoms as well. Patient currently denies any suicidal ideations or homicidal ideations. Yes all other systems are reviewed and are negative [facility] Medical History (Updated 02/05/25 @ 04:45 by BAKARI Vital) Depression with anxiety Tobacco dependence Alcohol use disorder Marijuana dependence IBS (irritable bowel syndrome) Cognitive capacity: Alert and orientated x3 Functional capacity: independent ambulation Pertinent family history: Mother is in her 60s with history of sciatica Social History (Updated 02/05/25 @ 04:45 by BAKARI Vital) Alcohol intake: current Alcohol intake frequency: holidays/special occasions only Comment: 3-4 nips of alcohol per day most days of the week Smoked in Last 30 Days: Yes Use of substances other than those prescribed or required for medical reasons: Yes Substance Use Type: Marijuana Advance Directives: No Advance Directives Information Provided: No Do you have a plan to hurt others: No Plan Ebola Risk: Travel/Contact With Anyone From Affected Area/s: No Has Patient Experienced Ebola Symptoms: No Meds Allergies Allergy/AdvReac Type Severity Reaction Status Date / Time droperidol Allergy Anxiety Verified 02/04/25 21:20 Physical Exam Vital Signs and Narrative: Vital Signs: Last Vital Signs Temp 97.9 F 02/05/25 03:45 Pulse 97 02/05/25 03:45 Resp 17 02/05/25 03:45 BP 134/92 H 02/05/25 03:45 Pulse Ox 95 02/05/25 03:45 O2 Del Method Room Air 02/05/25 03:45 BMI result Body Mass Index 19.0 Alert and orientated X3, able to give good history. Neuro: CN II-X11 intact, no deficits, visual acuity intact EYES: PERRLA, EOM intact, sclera nonicteric, conjunctiva pink ENT: hearing intact, no issues with swallowing, uvula midline, lips moist, nares patent no epistaxis Cardiac: S1 S2 RRR, no murmur, no JVD, no edema in Lower ext Pulmonary: lungs clear to auscultation B Abdominal: BS active in all 4 quadrants, no guarding, tenderness, rebounding MSK: strength 5/5 upper and lower extremities : no CVA tenderness no bladder distension pt voiding using urinal Extremities: no edema in lower extremities, PT and DP pulses palpable +2 Psych: mood mildly depressed, no SI or HI, , judgement and insight good Skin: intact, piercing through nose tattoos B Arms Results Labs 02/04/25 21:48 02/04/25 21:48 Labs: Laboratory Results - last 24 hr 02/04/25 02/04/25 02/05/25 21:48 23:16 01:16 MCV 95.2 MCH 32.8 MCHC 34.4 RDW 12.5 Plt Count 223 MPV 11.2 Immature Gran % (Auto) 0.8 H Neut % (Auto) 81.0 H Lymph % (Auto) 11.7 L [place] % (Auto) 6.3 Eos % (Auto) 0.0 Baso % (Auto) 0.2 Lymph # (Auto) 2.1 [place] # (Auto) 1.2 Eos # (Auto) 0.0 Baso # (Auto) 0.0 Abs Immat Gran (auto) 0.14 H Absolute Neuts (auto) 14.9 H Absolute Nucleated RBC 0.000 Nucleated RBC % (auto) 0.0 Anion Gap 31 H Estim Creat Clear Calc 14.5 Estimated GFR 10 Random Glucose 171 H Lactic Acid 4.2 H* Lactic Acid F/U @ 2Hr Calcium 11.4 H Magnesium 2.5 Total Bilirubin 0.8 AST 37 ALT 32 Alkaline Phosphatase 88 Total Creatine Kinase 718 H Total Protein 11.4 H Albumin 6.6 H Lipase 95 H Beta-Hydroxybutyrate 0.16 Urine Color Dark Yellow Urine Appearance Cloudy Urine pH 5.5 Ur Specific [place] 1.020 Urine Protein 300 (3+) H Urine Glucose (UA) Negative Urine Ketones Trace Urine Blood Large (3+) H Urine Nitrite Negative Ur Leukocyte Esterase Trace H Urine RBC 3-5 H Urine WBC 0-5 Ur Squamous Epith Cells 11-20 Urine Bacteria 1+ Hyaline Casts 6-10 Granular Casts Present Influenza Type A (PCR) NEGATIVE Influenza Type B (PCR) NEGATIVE RSV RNA Qual (PCR) NEGATIVE SARS-CoV-2 RNA (RT-PCR) NEGATIVE 02/05/25 01:31 MCV MCH MCHC RDW Plt Count MPV Immature Gran % (Auto) Neut % (Auto) Lymph % (Auto) [place] % (Auto) Eos % (Auto) Baso % (Auto) Lymph # (Auto) [place] # (Auto) Eos # (Auto) Baso # (Auto) Abs Immat Gran (auto) Absolute Neuts (auto) Absolute Nucleated RBC Nucleated RBC % (auto) Anion Gap Estim Creat Clear Calc Estimated GFR Random Glucose Lactic Acid Lactic Acid F/U @ 2Hr 1.7 Calcium Magnesium Total Bilirubin AST ALT Alkaline Phosphatase Total Creatine Kinase Total Protein Albumin Lipase Beta-Hydroxybutyrate Urine Color Urine Appearance Urine pH Ur Specific [place] Urine Protein Urine Glucose (UA) Urine Ketones Urine Blood Urine Nitrite Ur Leukocyte Esterase Urine RBC Urine WBC Ur Squamous Epith Cells Urine Bacteria Hyaline Casts Granular Casts Influenza Type A (PCR) Influenza Type B (PCR) RSV RNA Qual (PCR) SARS-CoV-2 RNA (RT-PCR) ECG Attestation: I personally reviewed and interpreted this ECG as follows: (Sinus tachycardia Biatrial enlargement) Prior ECG tracings: available for review Imaging Radiologist's Impressions: CT ABD PELVIS Negative for acute findings Assessment and Plan (1) DIMAS (acute kidney injury): Status: Acute Plan Patient is a 29-year-old black male with history of IBS- C/D and follows with [facility], HX of DIMAS associated with cyclical syndrome and marijuana use, chronic marijuana use 3-4 bowls per day with 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 Assessment in the ED noted DIMAS secondary to cyclical nausea, vomiting with dehydration and evidence of mild rhabdomyolysis. Patient being admitted for further evaluation. DIMAS secdonary to persistent N/V, dehydration IV fluids continue, LR at 100 mL/hour NPO except for ice chips and medications, currently tolerated as patient is asymptomatic - advance diet as tolerated Zofran PRN Nephrology consulted Avoid hypotension and nephrotoxic medications BMP daily Strict I's and O's CT ABD PELVIS neg for acute findings Hyperkalemia Patient received D50 with regular insulin Repeat K pending Telemetry Hypercalcemia IV fluids administered Repeat calcium pending Rhabdomyolosis mild Total CK 718 initially IV fluids continue Leg cramping and symptoms are resolving Repeat level in the a.m. HTN Hydralazine 10 mg IV Q6H prn for systolic > 160 Avoid hypotension noting DIMAS Pt deneis hx of Renal Artery Stenosis Chronic marijuana use Patient has had hyperemesis with cyclical nausea/vomiting related to marijuana use in the past Patient currently using 3-4 bowls per day with increasing depression and anxiety Capsaician cream ordered, pt agreeable to tx Addictions counseled Tobacco dependence Patient smokes 4-5 times per day Requesting nicotine patch. Ordering 14 mg daily Patient counseled on the benefits of smoking cessation Alcohol use disorder Patient has been increasing his alcohol use sometimes at home alone - 3-4 nips of vodka per day on most days - last drink Tuesday02/01/25 No history of withdrawal Thiamine and folic acid started Addictions consulted CIWA ordered, patient currently scoring 0 with no indication for phenobarbital at this time IBS- C/D Patient will continue to follow with his outpatient GI specialist MiraLax PRN Patient currently denies any issues with diarrhea or constipation Depression anxiety Patient agreeable psychiatric consultation as his depression anxiety is increasing with noted increased marijuana and alcohol use Vitamin-D level ordered Patient denies any SI or HI - no indication for section 12 are one-to-one at this time Patient is not currently on SSRIs but takes amitriptyline Borderline underweight Nutritional consult ordered Patient admits that appetite has varied lately most likely due to stress and anxiety Patient does have access to food with financial resources available. Plan of care reviewed with Dr. Rosales. Agreed with holding ABX at this time as there is no obvious source of infection. Lactic acidosis and leukocytosis likely reactive to cyclical N/V. DVT prophylaxis: Heparin subQ Med rec pending Full Code status Quality Stroke Does the patient have a stroke diagnosis?: No Reason for No Anti-thrombotic by Day Two: N/A - Med Ordered VTE Prior VTE?: No VTE Risk Level:: Medical - moderate - high VTE Device Contraindication: N/A - Device Ordered VTE Drug Contraindication: N/A - Med Ordered
[2025-02-05] MEDS: Lactated Ringers 1,000 ML 100 ML IVCONT ×3 (04:27→23:40)
[2025-02-05] MEDS: Nicotine 14 MG PATCH.TD24 TRANSDERMA ×2 (05:19→09:05)
[2025-02-05 05:29] LABS: MANUAL DIFF FLAG NO
[2025-02-05 05:31] LABS: Hematocrit 49.1 % (42.0-52.0); Hemoglobin 17.4 g/dl (14.0-18.0); Imm Gran Abs Auto 0.08 X10*3/uL (0.00-0.03); Imm Gran Pct Auto 0.4 % (0.0-0.4); Lymphocytes Absolute Auto 1.8 X10*3/uL (1.2-4.9); Mean Corpuscular HGB Conc 35.4 g/dl (31.0-36.0); Mean Corpuscular Hemoglobin 33.2 pg (27.0-33.0); Mean Corpuscular Volume 93.7 fL (80.0-98.0); NRBC Abs Auto 0.000 X10*3/uL (0.0-0.012); NRBC Pct Auto 0.0 /100WBC (0.0-0.2); Platelet Count 177 X10*3/uL (160-400); Red Blood Count 5.24 X10*6/uL (4.60-5.80); White Blood Count 18.1 X10*3/uL (4.8-10.8)
[2025-02-05 05:40] LABS: Cannabinoid Screen Urine POSITIVE (Not Detect)
[2025-02-05 05:59] LABS: Anion Gap 24 (12-20); Blood Urea Nitrogen 50 mg/dL (9-16); Calcium 9.9 mg/dL (8.4-10.2); Carbon Dioxide 23 mmol/L (22-29); Chloride 98 mmol/L (96-108); Creatinine Clr Calc Pharmacy 18.9; Estimated Glomerular Filt Rate 13; Lipase 48 U/L (8-78); Potassium 4.6 mmol/L (3.3-5.1); Sodium 140 mmol/L (135-145)
--- NOTE | 2025-02-05 07:41 | PC.NURSE ---
pt requesting diet order, notified and diet order placed. Pt denies n/v or abdominal pain at this time. A+Ox4, calm, cooperative. Pt provided with gingerale and jello with some saltines.
--- NOTE | 2025-02-05 08:10 | PHA.MEDREC ---
Addendum entered by Alexandria Velázquez RPh 02/05/25 08:18: Reviewed by [facility] Original Note: Pharmacy Consult ? Medication Reconciliation Pharmacy has completed the medication reconciliation. Pt confirmed his medications. Per pt he still has and takes Dicyclomine as needed for abdominal pain and Ondansetron as needed for nausea and vomiting.
[2025-02-05 08:37] LABS: Parathyroid Hormone Intact 128.0 pg/mL (8.7-77.1)
--- NOTE | 2025-02-05 09:26 | HO.PM.IMPN ---
Subjective Subjective Date of Service: 02/06/25 Interval History: Seen and evaluated today, reports he is feeling better than yesterday. Explains he knows this is a flare up of his IBS, but his kidneys are affected too. He also expresses being told this stay that his history of alcohol use and marijuana use and life stresses are likely contributing. Gastrointestinal Gastrointestinal: Reports abdominal pain and Reports GI cramping Physical Exam Vital Signs: Vital Signs: Last Vital Signs Temp 97.8 F 02/05/25 07:06 Pulse 87 02/05/25 07:06 Resp 16 02/05/25 07:06 BP 137/97 H 02/05/25 07:06 Pulse Ox 99 02/05/25 07:06 O2 Del Method Room Air 02/05/25 07:06 BMI result Body Mass Index 19.0 Const: Orientation/consciousness: patient oriented x3 HEENT: Head: Yes normal to inspection Resp: Effort & Inspection: normal respiratory effort Auscultation: clear to auscultation bilaterally Cardio: Rate: regular rate Rhythm: regular rhythm GI: Inspection: Yes normal to inspection Palpation (GI): Tenderness to palpation present (GI) (to deep palpation, generalized) Auscultation: Hyperactive bowel sounds present Neuro: General: patient oriented x3, moves all extremities, no focal motor deficits and CN's II-XI intact bilaterally Objective Data Active Medications Acetaminophen (Acetaminophen 325 Mg Tablet) 650 mg PO Q6H PRN PRN Reason: Pain, Mild 1-3,fever,headache Albuterol/Ipratropium (Albuterol/Iprat 2.5/0.5mg 3 Ml Ampul.Neb) 3 ml INHALE Q4H PRN PRN Reason: Shortness of Breath/Wheezing Amitriptyline HCl (Amitriptyline Hcl 10 Mg Tablet) 10 mg PO BEDTIME [place]LEY Calcium Carbonate (Calcium Carbonate 750 Mg Tab.Chew) 750 mg PO Q4H PRN PRN Reason: Heartburn Capsaicin (Capsaicin 0.025% Cream 60 Gm Tube) 1 appl TOPICAL QID PRN; Protocol PRN Reason: Nausea and Vomiting Dicyclomine HCl (Dicyclomine Hcl 10 Mg Capsule) 20 mg PO Q6H PRN PRN Reason: cramps Folic Acid (Folic Acid 1 Mg Tablet) 1 mg PO DAILY [facility] Last Admin: 02/05/25 09:05 Dose: 1 mg Documented By: JHOANA Heparin Sodium (Porcine) (Heparin Sodium,Porcine 5,000 Unit/Ml Vial) 5,000 unit SUBCUT Q8H [facility] Last Admin: 02/05/25 04:28 Dose: 5,000 unit Documented By: INNA Hydralazine HCl (Hydralazine Hcl 20 Mg/Ml Vial) 10 mg IVPUSH Q6H PRN; Protocol PRN Reason: SBP > 160 Lactated Ringer's (Lr) 1,000 mls @ 100 mls/hr IVCONT .Q10H [facility] Last Admin: 02/05/25 04:27 Dose: 100 mls/hr Documented By: INNA Magnesium Hydroxide (Milk Of Magnesia 30 Ml Oral.Susp) 30 ml PO DAILY PRN PRN Reason: Constipation Magnesium Oxide (Magnesium Oxide 400 Mg Tablet) 400 mg PO BEDTIME B[place]LEY Melatonin (Melatonin 3 Mg Tablet) 6 mg PO BEDTIME PRN PRN Reason: Insomnia Nicotine (Nicotine 14 Mg Patch.Td24) 14 mg TRANSDERMA DAILY [facility] Last Admin: 02/05/25 09:05 Dose: 14 mg Documented By: JHOANA Ondansetron HCl (Ondansetron Hcl 4 Mg/2 Ml Vial) 4 mg IVPUSH Q8H PRN PRN Reason: Nausea and Vomiting Polyethylene Glycol (Polyethylene Glycol 3350 17 Gm Powd.Pack) 17 gm PO DAILY PRN PRN Reason: Constipation Sodium Chloride (0.9 % Sodium Chloride Flush 3 Ml Syringe) 3 ml IVFLUSH QSHIFT [facility] Last Admin: 02/05/25 07:34 Dose: Not Given Documented By: JHOANA Non-Admin Reason: IV Running Thiamine HCl (Thiamine Hcl 100 Mg Tablet) 100 mg PO DAILY [facility] Last Admin: 02/05/25 09:05 Dose: 100 mg Documented By: JHOANA Labs 02/05/25 04:47 02/06/25 05:11 Labs: Laboratory Results - last 24 hr 02/04/25 02/04/25 02/05/25 21:48 23:16 01:16 MCV 95.2 MCH 32.8 MCHC 34.4 RDW 12.5 Plt Count 223 MPV 11.2 Immature Gran % (Auto) 0.8 H Neut % (Auto) 81.0 H Lymph % (Auto) 11.7 L [place] % (Auto) 6.3 Eos % (Auto) 0.0 Baso % (Auto) 0.2 Lymph # (Auto) 2.1 [place] # (Auto) 1.2 Eos # (Auto) 0.0 Baso # (Auto) 0.0 Abs Immat Gran (auto) 0.14 H Absolute Neuts (auto) 14.9 H Absolute Nucleated RBC 0.000 Nucleated RBC % (auto) 0.0 Anion Gap 31 H Estim Creat Clear Calc 14.5 Estimated GFR 10 Random Glucose 171 H Lactic Acid 4.2 H* Lactic Acid F/U @ 2Hr Calcium 11.4 H Magnesium 2.5 Total Bilirubin 0.8 AST 37 ALT 32 Alkaline Phosphatase 88 Total Creatine Kinase 718 H Total Protein 11.4 H Albumin 6.6 H Lipase 95 H Beta-Hydroxybutyrate 0.16 PTH Intact Urine Color Dark Yellow Urine Appearance Cloudy Urine pH 5.5 Ur Specific [place] 1.020 Urine Protein 300 (3+) H Urine Glucose (UA) Negative Urine Ketones Trace Urine Blood Large (3+) H Urine Nitrite Negative Ur Leukocyte Esterase Trace H Urine RBC 3-5 H Urine WBC 0-5 Ur Squamous Epith Cells 11-20 Urine Bacteria 1+ Hyaline Casts 6-10 Granular Casts Present Urine Opiates Screen Ur Buprenorphine Scrn Ur Oxycodone Screen Urine Methadone Screen Urine Fentanyl Screen Ur Barbiturates Screen Ur Phencyclidine Scrn Ur Amphetamines Screen U Benzodiazepines Scrn Urine Cocaine Screen U Marijuana (THC) Screen Influenza Type A (PCR) NEGATIVE Influenza Type B (PCR) NEGATIVE RSV RNA Qual (PCR) NEGATIVE SARS-CoV-2 RNA (RT-PCR) NEGATIVE 02/05/25 02/05/25 02/05/25 01:31 04:47 05:20 MCV 93.7 MCH 33.2 H MCHC 35.4 RDW 12.3 Plt Count 177 MPV 11.4 Immature Gran % (Auto) 0.4 Neut % (Auto) 81.1 H Lymph % (Auto) 10.1 L [place] % (Auto) 8.2 Eos % (Auto) 0.0 Baso % (Auto) 0.2 Lymph # (Auto) 1.8 [place] # (Auto) 1.5 H Eos # (Auto) 0.0 Baso # (Auto) 0.0 Abs Immat Gran (auto) 0.08 H Absolute Neuts (auto) 14.6 H Absolute Nucleated RBC 0.000 Nucleated RBC % (auto) 0.0 Anion Gap 24 H Estim Creat Clear Calc 18.9 Estimated GFR 13 Random Glucose 84 Lactic Acid Lactic Acid F/U @ 2Hr 1.7 Calcium 9.9 D Magnesium Total Bilirubin AST ALT Alkaline Phosphatase Total Creatine Kinase 994 H Total Protein Albumin Lipase 48 Beta-Hydroxybutyrate PTH Intact Urine Color Urine Appearance Urine pH Ur Specific [place] Urine Protein Urine Glucose (UA) Urine Ketones Urine Blood Urine Nitrite Ur Leukocyte Esterase Urine RBC Urine WBC Ur Squamous Epith Cells Urine Bacteria Hyaline Casts Granular Casts Urine Opiates Screen Not Detected Ur Buprenorphine Scrn Not Detected Ur Oxycodone Screen Not Detected Urine Methadone Screen Not Detected Urine Fentanyl Screen Not Detected Ur Barbiturates Screen Not Detected Ur Phencyclidine Scrn Not Detected Ur Amphetamines Screen Not Detected U Benzodiazepines Scrn Not Detected Urine Cocaine Screen Not Detected U Marijuana (THC) Screen POSITIVE H Influenza Type A (PCR) Influenza Type B (PCR) RSV RNA Qual (PCR) SARS-CoV-2 RNA (RT-PCR) 02/05/25 08:07 MCV MCH MCHC RDW Plt Count MPV Immature Gran % (Auto) Neut % (Auto) Lymph % (Auto) [place] % (Auto) Eos % (Auto) Baso % (Auto) Lymph # (Auto) [place] # (Auto) Eos # (Auto) Baso # (Auto) Abs Immat Gran (auto) Absolute Neuts (auto) Absolute Nucleated RBC Nucleated RBC % (auto) Anion Gap Estim Creat Clear Calc Estimated GFR Random Glucose Lactic Acid Lactic Acid F/U @ 2Hr Calcium Magnesium Total Bilirubin AST ALT Alkaline Phosphatase Total Creatine Kinase Total Protein Albumin Lipase Beta-Hydroxybutyrate PTH Intact 128.0 H Urine Color Urine Appearance Urine pH Ur Specific [place] Urine Protein Urine Glucose (UA) Urine Ketones Urine Blood Urine Nitrite Ur Leukocyte Esterase Urine RBC Urine WBC Ur Squamous Epith Cells Urine Bacteria Hyaline Casts Granular Casts Urine Opiates Screen Ur Buprenorphine Scrn Ur Oxycodone Screen Urine Methadone Screen Urine Fentanyl Screen Ur Barbiturates Screen Ur Phencyclidine Scrn Ur Amphetamines Screen U Benzodiazepines Scrn Urine Cocaine Screen U Marijuana (THC) Screen Influenza Type A (PCR) Influenza Type B (PCR) RSV RNA Qual (PCR) SARS-CoV-2 RNA (RT-PCR) Assessment and Plan (1) DIMAS (acute kidney injury): Status: Acute Plan 29 yo black male with history of IBS- C/D and follows with [facility], HX of DIMAS associated with cyclical syndrome and marijuana use, chronic marijuana use 3-4 bowls per day with 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 Presented to ED with severe abdominal pain associated with nausea/vomiting since Tuesday. DIMAS secondary to persistent N/V, dehydration- Process [employer]. 6.74 --> 5.17 IV fluids continue, LR at 100 mL/hour Clear liquids initiated, advance diet as tolerated Zofran PRN Nephrology: will get repeat UA and quantify urine protein. continue IVF hydration. close I&O monitoring Avoid hypotension and nephrotoxic medications BMP daily Strict I's and O's CT ABD PELVIS neg for acute findings Hyperkalemia, corrected now 4.6 Hypercalcemia- resolved Rhabdomyolosis, Total CK 718 initially, repeat this am 994 IV fluids continue Leg cramping and symptoms resolving HTN Hydralazine 10 mg IV Q6H prn for systolic > 160 Avoid hypotension noting DIMAS Pt deneis hx of Renal Artery Stenosis Chronic marijuana causing hyperemesis advise cessation or in moderation IVF for hyperemesis, capsacin Tobacco dependence NRT Alcohol use disorder, low risk of withdrawal ciwa abstinence advised IBS- C/D Patient will continue to follow with his outpatient GI specialist MiraLax PRN Patient currently denies any issues with diarrhea or constipation Depression anxiety continuehome meds DVT prophylaxis: Heparin subQ Med rec pending Full Code status Quality Stroke Does the patient have a stroke diagnosis?: No Reason for No Anti-thrombotic by Day Two: N/A - Med Ordered VTE Prior VTE?: No VTE Risk Level:: Medical - moderate - high VTE Device Contraindication: N/A - Device Ordered VTE Drug Contraindication: N/A - Med Ordered
--- NOTE | 2025-02-05 10:20 | P.CONNP_ITS ---
History of Present Illness Reason for Consult Consult date: 02/05/25 Chief Complaint Chief complaint: nausea/vomiting History of Present Illness Narrative: 29 y/o male with a medical history of IBS, anxiety, depression, hx of DIMAS from dehydration per pt, daily marijuana use with associated cyclic hyperemesis syndrome. Presented 02/04 with severe abdominal pain, nausea/vomiting x3 days, unable to keep fluids down. Pt reportedly also drinking 4-5 nips of alcohol daily due to increased personal stressors over the last few weeks. 02/04 creatinine 6.74 8/5 a.m. creatinine 5.17 lactic avid 4.2, beta hydroxybuteratte 0.16 lipase 48, down from 95 yesterday CK is less than 1000 CT abdomen/pelvis unremarkable UA +protein, blood blood pressure 137/97 receiving LR at 100ml/hr patient reports he feels improvement in his symptoms since yesterday. States nausea, vomiting, no diarrhea for a number of days. Nausea and vomiting have resolved with fluids and antiemetics per pt. States he is still having some abdominal cramping but it is improving. Denies other symptoms/complaints. States he has had this once in the past and had a DIMAS- hospitalized at [facility], states creatinine was not as high as this time. States was not able to keep anything down for a few days now. States he started drinking 4-5 nips daily a few weeks ago due to stress. States he uses marijuana daily, denies other prescribed/non- prescribed medication use. Denies frequent use of NSAIDs. Review of Systems Review of Systems See HPI. Yes all other systems are reviewed and are negative Constitutional: Reports fatigue and Reports lethargy Endocrine: Reports fatigue PMFSH Past Medical History Medical History (Updated 02/05/25 @ 04:45 by MIK Vital-REANNA) Depression with anxiety Tobacco dependence Alcohol use disorder Marijuana dependence IBS (irritable bowel syndrome) Social History Social History (Updated 02/05/25 @ 04:45 by BAKARI Vital) Alcohol intake: current Alcohol intake frequency: holidays/special occasions only Comment: 3-4 nips of alcohol per day most days of the week Smoked in Last 30 Days: Yes Use of substances other than those prescribed or required for medical reasons: Yes Substance Use Type: Marijuana Advance Directives: No Advance Directives Information Provided: No Do you have a plan to hurt others: No Plan Travel History Ebola Risk: Travel/Contact With Anyone From Affected Area/s: No Has Patient Experienced Ebola Symptoms: No Meds Allergies Allergy/AdvReac Type Severity Reaction Status Date / Time droperidol Allergy Anxiety Verified 02/04/25 21:20 Active Medications: Current Medications Acetaminophen (Acetaminophen 325 Mg Tablet) 650 mg PO Q6H PRN PRN Reason: Pain, Mild 1-3,fever,headache Albuterol/Ipratropium (Albuterol/Iprat 2.5/0.5mg 3 Ml Ampul.Neb) 3 ml INHALE Q4H PRN PRN Reason: Shortness of Breath/Wheezing Amitriptyline HCl (Amitriptyline Hcl 10 Mg Tablet) 10 mg PO BEDTIME [place] Calcium Carbonate (Calcium Carbonate 750 Mg Tab.Chew) 750 mg PO Q4H PRN PRN Reason: Heartburn Capsaicin (Capsaicin 0.025% Cream 60 Gm Tube) 1 appl TOPICAL QID PRN; Protocol PRN Reason: Nausea and Vomiting Dicyclomine HCl (Dicyclomine Hcl 10 Mg Capsule) 20 mg PO Q6H PRN PRN Reason: cramps Folic Acid (Folic Acid 1 Mg Tablet) 1 mg PO DAILY [facility] Last Admin: 02/05/25 09:05 Dose: 1 mg Heparin Sodium (Porcine) (Heparin Sodium,Porcine 5,000 Unit/Ml Vial) 5,000 unit SUBCUT Q8H [facility] Last Admin: 02/05/25 04:28 Dose: 5,000 unit Hydralazine HCl (Hydralazine Hcl 20 Mg/Ml Vial) 10 mg IVPUSH Q6H PRN; Protocol PRN Reason: SBP > 160 Lactated Ringer's (Lr) 1,000 mls @ 100 mls/hr IVCONT .Q10H [facility] Last Admin: 02/05/25 04:27 Dose: 100 mls/hr Magnesium Hydroxide (Milk Of Magnesia 30 Ml Oral.Susp) 30 ml PO DAILY PRN PRN Reason: Constipation Magnesium Oxide (Magnesium Oxide 400 Mg Tablet) 400 mg PO BEDTIME [facility] Melatonin (Melatonin 3 Mg Tablet) 6 mg PO BEDTIME PRN PRN Reason: Insomnia Nicotine (Nicotine 14 Mg Patch.Td24) 14 mg TRANSDERMA DAILY [facility] Last Admin: 02/05/25 09:05 Dose: 14 mg Ondansetron HCl (Ondansetron Hcl 4 Mg/2 Ml Vial) 4 mg IVPUSH Q8H PRN PRN Reason: Nausea and Vomiting Polyethylene Glycol (Polyethylene Glycol 3350 17 Gm Powd.Pack) 17 gm PO DAILY PRN PRN Reason: Constipation Sodium Chloride (0.9 % Sodium Chloride Flush 3 Ml Syringe) 3 ml IVFLUSH QSHIFT [facility] Last Admin: 02/05/25 07:34 Dose: Not Given Thiamine HCl (Thiamine Hcl 100 Mg Tablet) 100 mg PO DAILY [facility] Last Admin: 02/05/25 09:05 Dose: 100 mg Home Medications ?Medication ?Instructions ?Recorded ?Confirmed ?Last Taken ?Type amitriptyline 10 mg tablet 10 mg PO BEDTIME 02/05/25 0 02/05/25 02/03/25 History dicyclomine 20 mg tablet 20 mg PO Q6H PRN cramps 11/2502/05/25 02/03/25 History magnesium oxide 400 mg (241.3 mg 400 mg PO BEDTIME 11/2502/05/25 02/03/25 History magnesium) tablet ondansetron 4 mg disintegrating 4 mg PO Q8H PRN nausea /vomiting 02/05/25 02/05/25 02/04/25 History tablet Physical Exam Vital Signs: Last Vital Signs Temp 97.8 F 02/05/25 07:06 Pulse 87 02/05/25 07:06 Resp 16 02/05/25 07:06 BP 137/97 H 02/05/25 07:06 Pulse Ox 99 02/05/25 07:06 O2 Del Method Room Air 02/05/25 07:06 BMI result Body Mass Index 19.0 Const General: no acute distress, alert and awake Resp Effort & Inspection: normal respiratory effort and able to speak in complete sentences Auscultation: clear to auscultation bilaterally Cardio Rate: regular rate Rhythm: regular rhythm Heart sounds: S1 normal heart sound present and S2 normal heart sound present GI Palpation (GI): Soft to palpation and nontender General: Yes no CVA tenderness Back/Spine/Pelvis Back: no CVA tenderness Skin Rashes: no rashes Extrem General: No edema Results Lab Results 02/05/25 04:47 02/05/25 04:47 Lab results: Chemistry 02/04/25 02/05/25 21:48 04:47 Sodium 138 140 Potassium 5.4 H 4.6 Carbon Dioxide 20 L 23 BUN 46 H 50 H Creatinine 6.74 H* 5.17 H* Calcium 11.4 H 9.9 D Hematology 02/04/25 02/05/25 21:48 04:47 WBC 18.4 H 18.1 H Hgb 19.8 H 17.4 Plt Count 223 177 Urinalysis 02/05/25 01:16 Urine Color Dark Yellow Urine Appearance Cloudy Urine pH 5.5 Ur Specific [place] 1.020 Urine Protein 300 (3+) H Urine Glucose (UA) Negative Urine Ketones Trace Urine Blood Large (3+) H Urine Nitrite Negative Ur Leukocyte Esterase Trace H Urine RBC 3-5 H Urine WBC 0-5 Ur Squamous Epith Cells 11-20 Hyaline Casts 6-10 Assessment and Plan (1) DIMAS (acute kidney injury): Status: Acute Plan DIMAS likely tubular injury secondary to poor renal perfusion from hypovolemia/dehydration. UA with blood and protein likely related to dehydration, will get repeat UA and quantify urine protein. DIMAS has started to improve with fluids, recommend continuing IVF hydration. recommend avoiding nephrotoxins recommend daily electrolyte and renal function studies close I&O monitoring Discussed with Dr Luciano. Procedures Date of Service Date of Service: 02/05/25
--- NOTE | 2025-02-05 17:05 | HO.ADDICTCON ---
History of Present Illness Date of Service: 02/05/2025 Chief Complaint: nausea/vomiting Reason for Consult: alcohol use and cannabis use with cyclical vomiting Sources of Information: patient interviewed and chart reviewed HPI Narrative: Patient is a 29 year old male, with history of IBS, who presented to [facility] ED with abdominal pain and vomiting. While in ED patient reported increase in alcohol intake and cannabis use. Medically admitted with DIMAS. Patient seen in room 9 of main ED. Sister present during interview with patient permission He is awake, alert, pleasant and engaged in interview. He reports that over the last several weeks his alcohol intake has increased due to several stressors. Drinking 5-6 nips every evening. Denies any withdrawal sx. Denies any history of treatment, but does mention history of problematic drinking in the past that resolved. Denies any other substance use, aside from cannabis He states that historically cannabis has been helpful with his IBS, or when he had episodes of vomiting-- I would take a hot shower and smoke, and my stomach would calm down . Labs reviewed--lactic acid, lipase and creatinine elevated He reports stomach pain has subsided and is requesting to eat Review of Systems Constitutional: Reports as per HPI and Reports no additional constitutional complaints Diagnostics Vital Signs (24Hr): Vital Signs - 24 hr 02/04/25 20:40 02/04/25 22:23 02/04/25 22:59 Temperature 97.9 F 97.4 F Pulse Rate 155 H 128 H 109 H Respiratory Rate 14 20 17 Blood Pressure 121/88 155/128 H 141/97 H Pulse Oximetry 98 95 95 Oxygen Delivery Method Room Air Room Air Room Air 02/04/25 23:03 02/04/25 23:51 02/05/25 00:25 Temperature Pulse Rate 99 102 H Respiratory Rate 16 16 12 Blood Pressure 133/93 H 133/88 Pulse Oximetry 98 97 Oxygen Delivery Method Room Air Room Air 02/05/25 00:31 02/05/25 00:45 02/05/25 01:03 Temperature Pulse Rate 101 H 99 104 H Respiratory Rate 12 Blood Pressure 138/104 H 136/103 H 135/95 H Pulse Oximetry 98 Oxygen Delivery Method Room Air 02/05/25 03:45 02/05/25 04:25 02/05/25 07:06 Temperature 97.9 F 98.1 F 97.8 F Pulse Rate 97 111 H 87 Respiratory Rate 17 11 L 16 Blood Pressure 134/92 H 153/93 H 137/97 H Pulse Oximetry 95 98 99 Oxygen Delivery Method Room Air Room Air Room Air 02/05/25 15:48 Temperature Pulse Rate 100 Respiratory Rate 16 Blood Pressure Pulse Oximetry Oxygen Delivery Method Room Air BMI result Body Mass Index 19.0 Labs 02/05/25 04:47 02/05/25 04:47 Labs: Laboratory Results - last 48 hr 02/04/25 02/04/25 02/05/25 21:48 23:16 01:16 WBC 18.4 H RBC 6.04 H Hgb 19.8 H Hct 57.5 H MCV 95.2 MCH 32.8 MCHC 34.4 RDW 12.5 Plt Count 223 MPV 11.2 Immature Gran % (Auto) 0.8 H Neut % (Auto) 81.0 H Lymph % (Auto) 11.7 L [place] % (Auto) 6.3 Eos % (Auto) 0.0 Baso % (Auto) 0.2 Lymph # (Auto) 2.1 [place] # (Auto) 1.2 Eos # (Auto) 0.0 Baso # (Auto) 0.0 Abs Immat Gran (auto) 0.14 H Absolute Neuts (auto) 14.9 H Absolute Nucleated RBC 0.000 Nucleated RBC % (auto) 0.0 Sodium 138 Potassium 5.4 H Chloride 92 L Carbon Dioxide 20 L Anion Gap 31 H BUN 46 H Creatinine 6.74 H* Estim Creat Clear Calc 14.5 Estimated GFR 10 Random Glucose 171 H Lactic Acid 4.2 H* Lactic Acid F/U @ 2Hr Calcium 11.4 H Magnesium 2.5 Total Bilirubin 0.8 AST 37 ALT 32 Alkaline Phosphatase 88 Total Creatine Kinase 718 H Total Protein 11.4 H Albumin 6.6 H Lipase 95 H Beta-Hydroxybutyrate 0.16 PTH Intact Urine Color Dark Yellow Urine Appearance Cloudy Urine pH 5.5 Ur Specific [place] 1.020 Urine Protein 300 (3+) H Urine Glucose (UA) Negative Urine Ketones Trace Urine Blood Large (3+) H Urine Nitrite Negative Ur Leukocyte Esterase Trace H Urine RBC 3-5 H Urine WBC 0-5 Ur Squamous Epith Cells 11-20 Urine Bacteria 1+ Hyaline Casts 6-10 Granular Casts Present Urine Opiates Screen Ur Buprenorphine Scrn Ur Oxycodone Screen Urine Methadone Screen Urine Fentanyl Screen Ur Barbiturates Screen Ur Phencyclidine Scrn Ur Amphetamines Screen U Benzodiazepines Scrn Urine Cocaine Screen U Marijuana (THC) Screen Influenza Type A (PCR) NEGATIVE Influenza Type B (PCR) NEGATIVE RSV RNA Qual (PCR) NEGATIVE SARS-CoV-2 RNA (RT-PCR) NEGATIVE 02/05/25 02/05/25 02/05/25 01:31 04:47 05:20 WBC 18.1 H RBC 5.24 Hgb 17.4 Hct 49.1 MCV 93.7 MCH 33.2 H MCHC 35.4 RDW 12.3 Plt Count 177 MPV 11.4 Immature Gran % (Auto) 0.4 Neut % (Auto) 81.1 H Lymph % (Auto) 10.1 L [place] % (Auto) 8.2 Eos % (Auto) 0.0 Baso % (Auto) 0.2 Lymph # (Auto) 1.8 [place] # (Auto) 1.5 H Eos # (Auto) 0.0 Baso # (Auto) 0.0 Abs Immat Gran (auto) 0.08 H Absolute Neuts (auto) 14.6 H Absolute Nucleated RBC 0.000 Nucleated RBC % (auto) 0.0 Sodium 140 Potassium 4.6 Chloride 98 Carbon Dioxide 23 Anion Gap 24 H BUN 50 H Creatinine 5.17 H* Estim Creat Clear Calc 18.9 Estimated GFR 13 Random Glucose 84 Lactic Acid Lactic Acid F/U @ 2Hr 1.7 Calcium 9.9 D Magnesium Total Bilirubin AST ALT Alkaline Phosphatase Total Creatine Kinase 994 H Total Protein Albumin Lipase 48 Beta-Hydroxybutyrate PTH Intact Urine Color Urine Appearance Urine pH Ur Specific [place] Urine Protein Urine Glucose (UA) Urine Ketones Urine Blood Urine Nitrite Ur Leukocyte Esterase Urine RBC Urine WBC Ur Squamous Epith Cells Urine Bacteria Hyaline Casts Granular Casts Urine Opiates Screen Not Detected Ur Buprenorphine Scrn Not Detected Ur Oxycodone Screen Not Detected Urine Methadone Screen Not Detected Urine Fentanyl Screen Not Detected Ur Barbiturates Screen Not Detected Ur Phencyclidine Scrn Not Detected Ur Amphetamines Screen Not Detected U Benzodiazepines Scrn Not Detected Urine Cocaine Screen Not Detected U Marijuana (THC) Screen POSITIVE H Influenza Type A (PCR) Influenza Type B (PCR) RSV RNA Qual (PCR) SARS-CoV-2 RNA (RT-PCR) 02/05/25 08:07 WBC RBC Hgb Hct MCV MCH MCHC RDW Plt Count MPV Immature Gran % (Auto) Neut % (Auto) Lymph % (Auto) [place] % (Auto) Eos % (Auto) Baso % (Auto) Lymph # (Auto) [place] # (Auto) Eos # (Auto) Baso # (Auto) Abs Immat Gran (auto) Absolute Neuts (auto) Absolute Nucleated RBC Nucleated RBC % (auto) Sodium Potassium Chloride Carbon Dioxide Anion Gap BUN Creatinine Estim Creat Clear Calc Estimated GFR Random Glucose Lactic Acid Lactic Acid F/U @ 2Hr Calcium Magnesium Total Bilirubin AST ALT Alkaline Phosphatase Total Creatine Kinase Total Protein Albumin Lipase Beta-Hydroxybutyrate PTH Intact 128.0 H Urine Color Urine Appearance Urine pH Ur Specific [place] Urine Protein Urine Glucose (UA) Urine Ketones Urine Blood Urine Nitrite Ur Leukocyte Esterase Urine RBC Urine WBC Ur Squamous Epith Cells Urine Bacteria Hyaline Casts Granular Casts Urine Opiates Screen Ur Buprenorphine Scrn Ur Oxycodone Screen Urine Methadone Screen Urine Fentanyl Screen Ur Barbiturates Screen Ur Phencyclidine Scrn Ur Amphetamines Screen U Benzodiazepines Scrn Urine Cocaine Screen U Marijuana (THC) Screen Influenza Type A (PCR) Influenza Type B (PCR) RSV RNA Qual (PCR) SARS-CoV-2 RNA (RT-PCR) Mental Status Exam Mental Status Exam Patient Appearance: Appropriate Level of Consciousness: Awake, Appropriate and Alert Patient Behavior: Appropriate and Cooperative Affect Description: Calm Speech Pattern: Clear Thought Process: Intact Thought Content: positive for Intact Judgement: Good Medications Medications Current Medications Acetaminophen (Acetaminophen 325 Mg Tablet) 650 mg PO Q6H PRN PRN Reason: Pain, Mild 1-3,fever,headache Albuterol/Ipratropium (Albuterol/Iprat 2.5/0.5mg 3 Ml Ampul.Neb) 3 ml INHALE Q4H PRN PRN Reason: Shortness of Breath/Wheezing Amitriptyline HCl (Amitriptyline Hcl 10 Mg Tablet) 10 mg PO BEDTIME [place] Calcium Carbonate (Calcium Carbonate 750 Mg Tab.Chew) 750 mg PO Q4H PRN PRN Reason: Heartburn Capsaicin (Capsaicin 0.025% Cream 60 Gm Tube) 1 appl TOPICAL QID PRN; Protocol PRN Reason: Nausea and Vomiting Dicyclomine HCl (Dicyclomine Hcl 10 Mg Capsule) 20 mg PO Q6H PRN PRN Reason: cramps Folic Acid (Folic Acid 1 Mg Tablet) 1 mg PO DAILY [facility] Last Admin: 02/05/25 09:05 Dose: 1 mg Heparin Sodium (Porcine) (Heparin Sodium,Porcine 5,000 Unit/Ml Vial) 5,000 unit SUBCUT Q8H [facility] Last Admin: 02/05/25 11:51 Dose: 5,000 unit Hydralazine HCl (Hydralazine Hcl 20 Mg/Ml Vial) 10 mg IVPUSH Q6H PRN; Protocol PRN Reason: SBP > 160 Lactated Ringer's (Lr) 1,000 mls @ 100 mls/hr IVCONT .Q10H [facility] Last Admin: 02/05/25 14:09 Dose: 100 mls/hr Magnesium Hydroxide (Milk Of Magnesia 30 Ml Oral.Susp) 30 ml PO DAILY PRN PRN Reason: Constipation Magnesium Oxide (Magnesium Oxide 400 Mg Tablet) 400 mg PO BEDTIME [place] Melatonin (Melatonin 3 Mg Tablet) 6 mg PO BEDTIME PRN PRN Reason: Insomnia Nicotine (Nicotine 14 Mg Patch.Td24) 14 mg TRANSDERMA DAILY [facility] Last Admin: 02/05/25 09:05 Dose: 14 mg Ondansetron HCl (Ondansetron Hcl 4 Mg/2 Ml Vial) 4 mg IVPUSH Q8H PRN PRN Reason: Nausea and Vomiting Polyethylene Glycol (Polyethylene Glycol 3350 17 Gm Powd.Pack) 17 gm PO DAILY PRN PRN Reason: Constipation Sodium Chloride (0.9 % Sodium Chloride Flush 3 Ml Syringe) 3 ml IVFLUSH QSHIFT [facility] Last Admin: 02/05/25 16:16 Dose: Not Given Thiamine HCl (Thiamine Hcl 100 Mg Tablet) 100 mg PO DAILY [facility] Last Admin: 02/05/25 09:05 Dose: 100 mg Allergies Allergies Allergy/AdvReac Type Severity Reaction Status Date / Time droperidol Allergy Anxiety Verified 02/04/25 21:20 Assessment & Plan Assessment & Plan (1) Alcohol use disorder: Status: Acute Code(s): F10.90 - Alcohol use, unspecified, uncomplicated Assessment and Plan: no withdrawal at time of evaluation --CIWA in place will follow up in AM to further discuss recovery supports and risk reduction related to cannabis use and alcohol use 35 PMFSH Past Medical History Medical History (Updated 02/05/25 @ 04:45 by BAKARI Vital) Depression with anxiety Tobacco dependence Alcohol use disorder Marijuana dependence IBS (irritable bowel syndrome) Social History Social History (Updated 02/05/25 @ 04:45 by Rubina Culp [facility]) Household Members: Significant Other Housing: House Do you presently have visiting nurse or other home services: No Alcohol intake: current Alcohol intake frequency: holidays/special occasions only Comment: 3-4 nips of alcohol per day most days of the week Patient Tobacco Use Status: Current everyday Tobacco user Tobacco use type: Cigarette e-Cigarette/Vaping Use: Never Used Second Hand Smoke Exposure: No Substance Use Type: Marijuana
[2025-02-06 03:43] VITALS: BP 142/83; PULSE 80; RESP 18; TEMP 36.8; O2SAT 98
[2025-02-06 05:25] LABS: Appearance Urine Clear; Glucose Urine UA 100 mg/dL (Negative); PH 6.0 (5.0-9.0); Specific Gravity - Urine 1.025 (1.005-1.025); UMIC TRIGGER UA YES
[2025-02-06 06:03] LABS: Protein/Creatinine Ratio, Ur 0.08 (<0.2); Total Protein Urine Random 15 mg/dL (<12)
[2025-02-06 06:47] LABS: Anion Gap 14 (12-20); Blood Urea Nitrogen 42 mg/dL (9-16); Calcium 8.9 mg/dL (8.4-10.2); Carbon Dioxide 27 mmol/L (22-29); Chloride 101 mmol/L (96-108); Creatinine Clr Calc Pharmacy 53.5; Estimated Glomerular Filt Rate 47; Potassium 4.0 mmol/L (3.3-5.1); Sodium 138 mmol/L (135-145)
[2025-02-06 06:52] LABS: B Type Natriuretic Peptide 14 pg/mL (<100)
[2025-02-06 06:55] VITALS: BP 129/83; PULSE 83; RESP 15; TEMP 36.6; O2SAT 98
--- NOTE | 2025-02-06 08:40 | P.PNNP_ITS ---
Subjective Subjective Date of Service: 02/06/25 Interval history: 29 y/o male here with dehydration- marijuana cyclical hyperemesis syndrome and anxiety/life stressors likely contributors. Following for DIMAS. Creatinine has gone down from 11/17 yesterday to 1.74 today. Patient states he is feeling much better today. Physical Exam 2 Vital Signs: Vital Signs: Last Vital Signs Temp 97.9 F 02/06/25 06:55 Pulse 83 02/06/25 06:55 Resp 15 02/06/25 06:55 BP 129/83 02/06/25 06:55 Pulse Ox 98 02/06/25 06:55 O2 Del Method Room Air 02/06/25 06:55 BMI result Body Mass Index 18.1 Const: General: no acute distress, alert and awake Resp: Effort & Inspection: normal respiratory effort and able to speak in complete sentences Auscultation: clear to auscultation bilaterally Cardio: Rate: regular rate Rhythm: regular rhythm Heart sounds: S1 normal heart sound present and S2 normal heart sound present GI: Palpation (GI): Soft to palpation and nontender : General: Yes no CVA tenderness Back/Spine/Pelvis: Back: no CVA tenderness Skin: Rashes: no rashes Extrem: General: No edema Objective Data Labs 02/05/25 04:47 02/06/25 05:11 Labs: Laboratory Results - last 24 hr 02/06/25 02/06/25 04:10 05:11 Hold Purple Top SEE NOTE Sodium 138 Potassium 4.0 Chloride 101 Carbon Dioxide 27 Anion Gap 14 BUN 42 H Creatinine 1.74 H Estim Creat Clear Calc 53.5 Estimated GFR 47 Fasting Glucose 82 Calcium 8.9 D B-Natriuretic Peptide 14 Urine Color Yellow Urine Appearance Clear Urine pH 6.0 Ur Specific [place] 1.025 Urine Protein 30 (1+) H Urine Glucose (UA) 100 H Urine Ketones Negative Urine Blood Negative Urine Nitrite Negative Ur Leukocyte Esterase Negative Urine RBC 0-2 Urine WBC 0-5 Ur Squamous Epith Cells 0-2 Urine Bacteria None Seen Hyaline Casts 0-2 U Random Total Protein 15 H Urine Creatinine 195.22 Protein/Creatinin Ratio 0.08 Microbiology Microbiology Results: Microbiology 02/04/25 23:16 Blood - Venous Blood Culture - Preliminary No growth after 24 hours. 02/04/25 23:16 Blood - Venous Blood Culture - Preliminary No growth after 24 hours. Procedures Date of Service Date of Service: 02/06/25 Assessment & Plan Assessment and plan (1) DIMAS (acute kidney injury): Status: Acute Plan DIMAS likely tubular injury secondary to poor renal perfusion from hypovolemia/dehydration. UA initially with blood and protein, this has resolved. Urine protein/creatinine ratio is 0.08. DIMAS has improved significantly with hydration, anticipate continued improvement. patient is ok to go home from a renal standpoint, the office will call him to arrange an outpatient follow up appointment upon discharge. Discussed with Dr Hooks. Time Spent With Patient Time: Total time managing care of this patient today ____ minutes. Progress Note: Quality Stroke Does the patient have a stroke diagnosis?: No Reason for No Anti-thrombotic by Day Two: N/A - Med Ordered
[2025-02-06] MEDS: Nicotine 14 MG PATCH.TD24 TRANSDERMA (08:45)
--- NOTE | 2025-02-06 09:58 | MHC.CM.PN ---
pr lives with girlfriend is indepedent has a ride home seen by addiction medicine
[2025-02-06] MEDS: Lactated Ringers 1,000 ML 100 ML IVCONT ×2 (10:45→20:54)
[2025-02-06 12:12] VITALS: BMI 18.1
--- NOTE | 2025-02-06 12:24 | MHC.CLN ---
NUTRITION DIET=REGULAR. PATIENT IS UNDERWEIGHT BUT DOES NOT APPEAR TO BE MALNOURISHED. OFFERED SUPPLEMENT AND PATIENT DOES NOT WANT. WATCHES LACTOSE INTAKE AND ABLE TO MAKE OWN FOOD SELECTIONS. CONTINUE REGULAR DIET. MONITOR PO INTAKE. SEE CLINICAL NUTRITION ASSESSMENT 02/06/25.
[2025-02-06 14:58] VITALS: BP 145/67; PULSE 76; RESP 18; TEMP 36.4; O2SAT 99
--- NOTE | 2025-02-06 15:26 | P.PNIM_ITS ---
Subjective Subjective Date of Service: 02/06/25 Interval History: Pleasant 29 year old male, admitted to hospital for cyclical hyperemesis syndrome c/b rhabdomyolysis & prerenal DIMAS. The patient reports feeling much better than yesterday. Creatinine has improved to 1.7 today, urine revealing resolution of blood and most of urinary protein. The patient has been mobilizing on the unit, eating and drinking. He has no new complaints today, and reports his nausea has mostly resolved. Review of Systems Review of Systems: Yes all other systems are reviewed and are negative Physical Exam 2 Exam: Exam: General: A&O x3, oriented to time place person and siutaion, comfortable, no pain Cardiac: S1, S2 auscultated with no S3/4, no MRG. Well perfused. Respiratory: Normal breath sounds auscultated throughout all lung zones, without wheezing, rales. Normal rate. GI/ : No abdominal pain on palpation, no masses or distentions. MSK: Normal ambulation without pain at bony prominences or musculature Neurological: Normal neurological examination on overview, without obvious CN II-XII abnormalities. Vital Signs: Vital Signs: Last Vital Signs Temp 97.6 F 02/06/25 14:58 Pulse 76 02/06/25 14:58 Resp 18 02/06/25 14:58 BP 145/67 H 02/06/25 14:58 Pulse Ox 99 02/06/25 14:58 O2 Del Method Room Air 02/06/25 14:58 BMI result Body Mass Index 18.1 Objective Data Active Medications Acetaminophen (Acetaminophen 325 Mg Tablet) 650 mg PO Q6H PRN PRN Reason: Pain, Mild 1-3,fever,headache Albuterol/Ipratropium (Albuterol/Iprat 2.5/0.5mg 3 Ml Ampul.Neb) 3 ml INHALE Q4H PRN PRN Reason: Shortness of Breath/Wheezing Amitriptyline HCl (Amitriptyline Hcl 10 Mg Tablet) 10 mg PO BEDTIME [facility] Last Admin: 02/05/25 20:13 Dose: 10 mg Documented By: KALYAN Calcium Carbonate (Calcium Carbonate 750 Mg Tab.Chew) 750 mg PO Q4H PRN PRN Reason: Heartburn Capsaicin (Capsaicin 0.025% Cream 60 Gm Tube) 1 appl TOPICAL QID PRN; Protocol PRN Reason: Nausea and Vomiting Dicyclomine HCl (Dicyclomine Hcl 10 Mg Capsule) 20 mg PO Q6H PRN PRN Reason: cramps Folic Acid (Folic Acid 1 Mg Tablet) 1 mg PO DAILY [facility] Last Admin: 02/06/25 08:45 Dose: 1 mg Documented By: MODESTA Heparin Sodium (Porcine) (Heparin Sodium,Porcine 5,000 Unit/Ml Vial) 5,000 unit SUBCUT Q8H [facility] Last Admin: 02/06/25 11:53 Dose: 5,000 unit Documented By: MODESTA Hydralazine HCl (Hydralazine Hcl 20 Mg/Ml Vial) 10 mg IVPUSH Q6H PRN; Protocol PRN Reason: SBP > 160 Lactated Ringer's (Lr) 1,000 mls @ 100 mls/hr IVCONT .Q10H [facility] Last Admin: 02/06/25 10:45 Dose: 100 mls/hr Documented By: MODESTA Magnesium Hydroxide (Milk Of Magnesia 30 Ml Oral.Susp) 30 ml PO DAILY PRN PRN Reason: Constipation Magnesium Oxide (Magnesium Oxide 400 Mg Tablet) 400 mg PO BEDTIME [facility] Last Admin: 02/05/25 20:13 Dose: 400 mg Documented By: KALYAN Melatonin (Melatonin 3 Mg Tablet) 6 mg PO BEDTIME PRN PRN Reason: Insomnia Nicotine (Nicotine 14 Mg Patch.Td24) 14 mg TRANSDERMA DAILY [facility] Last Admin: 02/06/25 08:45 Dose: 14 mg Documented By: MODESTA Ondansetron HCl (Ondansetron Hcl 4 Mg/2 Ml Vial) 4 mg IVPUSH Q8H PRN PRN Reason: Nausea and Vomiting Polyethylene Glycol (Polyethylene Glycol 3350 17 Gm Powd.Pack) 17 gm PO DAILY PRN PRN Reason: Constipation Sodium Chloride (0.9 % Sodium Chloride Flush 3 Ml Syringe) 3 ml IVFLUSH QSHIFT [facility] Last Admin: 02/06/25 13:48 Dose: Not Given Documented By: MODESTA Non-Admin Reason: IV Running Thiamine HCl (Thiamine Hcl 100 Mg Tablet) 100 mg PO DAILY [facility] Last Admin: 02/06/25 08:45 Dose: 100 mg Documented By: MODESTA Labs 02/05/25 04:47 02/06/25 05:11 Labs: Laboratory Results - last 24 hr 08/06/25 08/06/25 04:10 05:11 Hold Purple Top SEE NOTE Anion Gap 14 Estim Creat Clear Calc 53.5 Estimated GFR 47 Fasting Glucose 82 Calcium 8.9 D B-Natriuretic Peptide 14 Urine Color Yellow Urine Appearance Clear Urine pH 6.0 Ur Specific [place] 1.025 Urine Protein 30 (1+) H Urine Glucose (UA) 100 H Urine Ketones Negative Urine Blood Negative Urine Nitrite Negative Ur Leukocyte Esterase Negative Urine RBC 0-2 Urine WBC 0-5 Ur Squamous Epith Cells 0-2 Urine Bacteria None Seen Hyaline Casts 0-2 U Random Total Protein 15 H Urine Creatinine 195.22 Protein/Creatinin Ratio 0.08 Microbiology Microbiology Results: Microbiology 02/04/25 23:16 Blood Culture - Preliminary Blood - Venous No growth after 24 hours. 02/04/25 23:16 Blood Culture - Preliminary Blood - Venous No growth after 24 hours. Assessment and Plan (1) Cannabinoid hyperemesis syndrome: Status: Acute Assessment and Plan: Resolved. No persistence of abdominal pain or nausea/ vomiting. Eating and drinking well currently. No new complaints PLAN - Encourage PO intake of food and liquid - PRN antiemetics - Monitor for recurrence of symptoms - Consider hot shower with steam for persistent nausea/ vomiting (2) Acute renal failure: Status: Acute Assessment and Plan: Prerenal DIMAS severe in the setting of significant rhabdomyolysis. Feels much better now. Urinating currently; normal color and no sediment. Improved UA noted. PLAN - Encourage PO intake of food and liquid - PRN antiemetics - IV lR 100cc/hr continue until tomorrow - Monitor for recurrence of symptoms (3) Rhabdomyolysis: Status: Acute Assessment and Plan: Rhabdomyolysis critical - now resolved - lead to organ dyfunction - DIMAS Urinating currently; normal color and no sediment. Improved UA noted. Likely precipitated by significant ketosis and a presumed elevated lactic acid. PLAN - Encourage PO intake of food and liquid - PRN antiemetics - IV lR 100cc/hr continue until tomorrow - Monitor for recurrence of symptoms (4) Intractable nausea and vomiting: Status: Acute (5) Acute dehydration: Status: Acute Assessment and Plan: Resolved. No persistence of abdominal pain or nausea/ vomiting. Eating and drinking well currently. No new complaints PLAN - Encourage PO intake of food and liquid - PRN antiemetics - Monitor for recurrence of symptoms - Consider hot shower with steam for persistent nausea/ vomiting (6) Marijuana dependence: Status: Acute Assessment and Plan: Active issue. Refer to outpatient services. Encouraged to STOP using marijuana to prevent possible recurrence of event Total time managing care of this patient today: 35 minutes. Quality Stroke Does the patient have a stroke diagnosis?: No Reason for No Anti-thrombotic by Day Two: N/A - Med Ordered VTE Prior VTE?: No VTE Risk Level:: Medical - moderate - high VTE Device Contraindication: N/A - Device Ordered VTE Drug Contraindication: N/A - Med Ordered
[2025-02-06 19:09] VITALS: BP 131/77; PULSE 97; RESP 18; TEMP 36.9; O2SAT 99
[2025-02-07 03:21] VITALS: BP 137/85; PULSE 74; RESP 18; TEMP 36.3; O2SAT 99
[2025-02-07] MEDS: Lactated Ringers 1,000 ML 100 ML IVCONT (05:22)
[2025-02-07 05:50] LABS: Appearance Urine Clear; Glucose Urine UA 250 mg/dL (Negative); PH 7.5 (5.0-9.0); Specific Gravity - Urine 1.025 (1.005-1.025)
[2025-02-07 06:14] LABS: Anion Gap 9 (12-20); Blood Urea Nitrogen 30 mg/dL (9-16); Calcium 8.5 mg/dL (8.4-10.2); Carbon Dioxide 27 mmol/L (22-29); Chloride 105 mmol/L (96-108); Creatinine Clr Calc Pharmacy 71.0; Estimated Glomerular Filt Rate > 60; Potassium 4.2 mmol/L (3.3-5.1); Sodium 137 mmol/L (135-145)
[2025-02-07 06:45] VITALS: BP 138/90; PULSE 71; RESP 16; TEMP 36.6; O2SAT 98
[2025-02-07] MEDS: Nicotine 14 MG PATCH.TD24 TRANSDERMA (08:26)
--- NOTE | 2025-02-07 13:08 | PM.DS ---
DS: Providers Provider Date of Service: 02/05/25 Date of admission: 02/05/25 03:43 Date of discharge: 02/07/25 Primary care physician: Unknown Physician Consults: 02/05/25 03:58 Consult to Nephrology Routine Consulting Provider: [facility] Reason for consultation: DIMAS, mild RHabdo with N/V, dehydration 02/05/25 04:31 Addiction Medicine Provider Routine Consulting Provider: [facility] Reason for consultation: excessive marijuana dependece, cyclical symptoms, recent increase in alcoho Has provider been notified: No Consult to Psychiatry Routine Consulting Provider: [facility] Reason for consultation: depression, anxiety, hx of SI and inpt admission, increas alc and marijuana Attending physician on discharge: Arcelia Cedeño DS: Diagnosis Discharge Diagnosis (1) Cannabinoid hyperemesis syndrome: Status: Acute (2) Acute renal failure: Status: Acute (3) Rhabdomyolysis: Status: Acute (4) Intractable nausea and vomiting: Status: Acute (5) Acute dehydration: Status: Acute (6) Marijuana dependence: Status: Acute DS: Summary Hospital Course Hospital Course: Pleasant 29 year old male, admitted to hospital for cyclical hyperemesis syndrome c/b rhabdomyolysis & prerenal DIMAS. Creatinine on admission elevated to ~4. Hydration IV initiated with eventual improvement of creatinine to baseline. UA revealing resolution of blood and most of urinary protein. The patient has been mobilizing on the unit, eating and drinking. He has no new complaints today, and reports his nausea has resolved. Status at Discharge Functional status at discharge: independent ambulation Overall status at discharge: patient is back to baseline Time Attestation Total time managing care of this patient today: 35 mintues. Discharge Coordination Time (in mins): 15 Quality: Safe Use of Opioids Does Pt have an Active Cancer Diagnosis on the Problem List?: No Quality: Stroke Does the patient have a stroke diagnosis?: No Physical Exam Exam: Exam: General: A&O x3, oriented to time place person and siutaion, comfortable, no pain Cardiac: S1, S2 auscultated with no S3/4, no MRG. Well perfused. Respiratory: Normal breath sounds auscultated throughout all lung zones, without wheezing, rales. Normal rate. GI/ : No abdominal pain on palpation, no masses or distentions. MSK: Normal ambulation without pain at bony prominences or musculature Neurological: Normal neurological examination on overview, without obvious CN II-XII abnormalities. Vital Signs: Vital Signs: Last Vital Signs Temp 98 F 02/07/25 06:45 Pulse 71 02/07/25 06:45 Resp 16 02/07/25 06:45 BP 138/90 H 02/07/25 06:45 Pulse Ox 98 02/07/25 06:45 O2 Del Method Room Air 02/07/25 06:45 BMI result Body Mass Index 18.1 DS: Data Data Completed and Pending Labs on day of discharge: Laboratory Results - last 24 hr 02/07/25 05:27 Hold Purple Top SEE NOTE Sodium 137 Potassium 4.2 Chloride 105 Carbon Dioxide 27 Anion Gap 9 L BUN 30 H Creatinine 1.31 Estim Creat Clear Calc 71.0 Estimated GFR > 60 Fasting Glucose 80 Calcium 8.5 Urine Color Yellow Urine Appearance Clear Urine pH 7.5 Ur Specific [place] 1.025 Urine Protein Trace Urine Glucose (UA) 250 H Urine Ketones Negative Urine Blood Negative Urine Nitrite Negative Ur Leukocyte Esterase Negative Urine RBC 0-2 Urine WBC 0-5 Ur Squamous Epith Cells 0-2 Urine Bacteria None Seen Hyaline Casts 0-2 Preliminary micro results at discharge 02/04/25 23:16 Blood Culture - Preliminary Blood - Venous No growth after 48 hours. 02/04/25 23:16 Blood Culture - Preliminary Blood - Venous No growth after 48 hours. Discharge Plan Discharge Anticipated Discharge Date/Time: 02/07/25 13:11 Patient Disposition: Home, Self-Care Discharge Diagnosis: Non traumatic rhabdomyolysis complicating prerenal DIMAS, secondary to intractible N/V due to hyperemesis syndrom Referrals: Physician,Unknown J [Primary Care Provider, Medical] - 1 Week Discharge Medications: Continued magnesium oxide 400 mg (241.3 mg magnesium) tablet 400 mg PO BEDTIME amitriptyline 10 mg tablet 10 mg PO BEDTIME dicyclomine 20 mg tablet 20 mg PO Q6H PRN (Reason: cramps) ondansetron 4 mg tablet,disintegrating 4 mg PO Q8H PRN (Reason: nausea/vomiting) Discharge Orders: Discharge Order (Routine); Ordered 02/07/25 Ordered By: Arcelia Ceedño Activity on Discharge: As tolerated Stand Alone Forms: Patient Portal Discharge page Print Language: Czech Care Plan Goals: As above. Discontinue smoking. Discontinue cannabis use. Health Concerns: Discontinue smoking. Discontinue cannabis use. Plan of Treatment: Follow up with primary care service as needed Encourage patient to discontinue smoking. Assessment: Stable, ready for discharge home.
--- NOTE | 2025-02-07 13:34 | MHC.CM.PN ---
PT TO DC HOME TODAY, NO SERVICES ORDERED PT TO ARRANGE TRANSPORT
[2025-02-07 13:53] VITALS: BP 142/90; PULSE 80; RESP 16; TEMP 36.1; O2SAT 99
[2025-02-09 14:44] LABS: Vitamin D 25-OH, D2 <4 ng/mL; Vitamin D 25-OH, D3 12 ng/mL; Vitamin D 25-OH, Total 12 ng/mL (30-100)
== END 2025-02-07 14:53 | disposition home or self-care (01) | DRG 351 ==
LOC: HO.ED 02-05 03:16 → HO.EDOVER 02-05 04:05 → HO.S3 02-05 16:56
PROVIDERS: Internal Medicine; Nurse Practitioner Family; Admitting Provider Student in an Organized Health Care Education/Training Program; Emergency Provider Emergency Medicine; Visit Provider Hospitalist
DX: M62.82 Rhabdomyolysis (principal); N17.9 Acute kidney failure, unspecified; E86.0 Dehydration; E83.52 Hypercalcemia; F17.210 Nicotine dependence, cigarettes, uncomplicated; E87.5 Hyperkalemia; I10 Essential (primary) hypertension; K58.2 Mixed irritable bowel syndrome; F10.90 Alcohol use, unspecified, uncomplicated; R11.2 Nausea with vomiting, unspecified; F12.20 Cannabis dependence, uncomplicated; F41.9 Anxiety disorder, unspecified; F32.A Depression, unspecified; Z20.822 Contact with and (suspected) exposure to COVID-19; Z71.6 Tobacco abuse counseling; Z79.899 Other long term (current) drug therapy
CPT/HCPCS: 36415; 74176; 80048; 80053; 80307; 81001; 82010; 82306; 82550; 82570; 83605; 83690; 83735; 83880; 83970; 84156; 85025; 87040; 87637; 93005; 99285; J1171; J1644; J2405; J2543; J7120; S9485

== ENCOUNTER → 2025-02-04 22:36 | Outpatient (BNV) | payer OTHER, SELFPAY | PROVIDERS: Admitting Provider Student in an Organized Health Care Education/Training Program; Emergency Provider Emergency Medicine; Visit Provider Internal Medicine | DX: I51.7 Cardiomegaly (principal); R00.0 Tachycardia, unspecified | CPT/HCPCS: 93010 ==

== ENCOUNTER → 2025-02-05 00:02 | Outpatient (BNV) | payer OTHER, SELFPAY | PROVIDERS: Emergency Provider Emergency Medicine; Visit Provider Student in an Organized Health Care Education/Training Program | DX: R10.84 Generalized abdominal pain (principal); N17.9 Acute kidney failure, unspecified | CPT/HCPCS: 74176 ==

== ENCOUNTER → 2025-02-05 03:43 | Outpatient (BNV) | payer OTHER, SELFPAY | PROVIDERS: Admitting Provider Student in an Organized Health Care Education/Training Program; Emergency Provider Emergency Medicine; Visit Provider Nurse Practitioner Family | DX: N17.9 Acute kidney failure, unspecified (principal) | CPT/HCPCS: 99222; 99231 ==

== ENCOUNTER → 2025-02-05 03:43 | Outpatient (BNV) | payer OTHER, SELFPAY | PROVIDERS: Admitting Provider Student in an Organized Health Care Education/Training Program; Emergency Provider Emergency Medicine; Visit Provider Nurse Practitioner Psychiatric/Mental Health | DX: F10.90 Alcohol use, unspecified, uncomplicated (principal) | CPT/HCPCS: 99221 ==

== ENCOUNTER → 2025-02-05 03:43 | Outpatient (BNV) | payer OTHER, SELFPAY | PROVIDERS: Admitting Provider Student in an Organized Health Care Education/Training Program; Emergency Provider Emergency Medicine; Visit Provider Nurse Practitioner Family | DX: N17.9 Acute kidney failure, unspecified (principal) | CPT/HCPCS: 99223 ==